=== PATIENT | male | born 1945 | race Caucasian/White ===

== ENCOUNTER 2021-06-06 16:44 | Emergency (ER) | payer MEDICARE, OTHER, SELFPAY ==
[2021-06-06 17:00] VITALS: BP 146/94; PULSE 86; RESP 16; TEMP 36.7; O2SAT 95
--- NOTE | 2021-06-06 17:22 | ED.UPPEXIN ---
HPI - Extremity Injury (Upper) General Chief Complaint: Extremity Injury, Upper Stated Complaint: Bicep Pain Time Seen by Provider: 06/06/21 17:22 Source: patient and RN notes reviewed Mode of arrival: ambulatory Limitations: no limitations History of Present Illness HPI narrative: 76-year-old male with history of hypertension presents with concern for right bicep pain. Reports today he was picking up a bag with 4 bowling balls and it when he heard and felt a snap on his right upper arm in the bicep area. Reports 0 pain with certain positions, reports extreme pain with flexing and extending. Denies any shoulder or elbow pain. Denies redness, bruising. Denies intervention. MD complaint: injury to: right and arm Related Data Home Medications Medication Instructions Recorded Confirmed atorvastatin 06/06/21 esomeprazole magnesium mg 06/06/21 lisinopril 06/06/21 tamsulosin mg PO 06/06/21 Allergies Allergy/AdvReac Type Severity Reaction Status Date / Time olive extract Allergy Unknown Swelling Verified 06/06/21 17:13 Penicillins Allergy Unknown Swelling Verified 06/06/21 17:13 Mushroom Allergy Unknown Anaphylaxis Uncoded 06/06/21 17:13 Review of Systems Review of Systems: CONSTITUTIONAL: Denies malaise, chills, sweats, or fever. SKIN: Denies redness, bruising, swelling, open skin, warmth MUSCULOSKELETAL: Reports right bicep pain NEUROLOGIC: Denies numbness, weakness All systems reviewed & are unremarkable except as noted in HPI and below PMFSH Family History Family History (Updated 03/20/19 @ 14:51 by DOCTOR UNKNOWN) Other Diabetes mellitus Family history of malignant neoplasm Social History Social History Smoking status: Former smoker Smoking end date: 08/30/87 Alcohol intake: current Comments At time of signature, agree with nursing past medical, surgical, social and family history. There is no relevant family history pertinent to the presenting complaint Exam Narrative: GENERAL: Well-appearing, well-nourished, and in no acute distress. HEAD: Normocephalic, atraumatic. EYES: PERRLA, conjunctivae clear NECK: Supple. CHEST: Speaks in full sentences. No respiratory distress. HEART: Regular rate and rhythm. Normal and equal peripheral pulses. EXTREMITIES: Right arm has normal sensation, limited range of motion. No edema or ecchymosis. Normal sensation with sensitivity to light touch and pain. Mid inner arm tenderness with mild bulge noted. No open wounds, no skin tenting, no devitalized tissue or atrophy, no trophic changes, alignment normal, nearby joints and structures intact. Distal pulses palpable and equal bilaterally, skin warm, dry, pink. Capillary refill less than 3 seconds. SKIN: Warm, dry, no rash. NEURO: Alert and oriented x3. PSYCH: Normal mood and affect Course Course Emergency Course: Patient is aware of diagnosis, understands and agrees to treatment plan. Anticipatory guidance given. Patient agrees to follow-up as directed and is aware of reasons to seek care at the emergency department. Portions of this record may have been created with voice recognition software Vital Signs Vital signs: Vital Signs Temperature 98.1 F 06/06/21 17:00 Pulse Rate 86 06/06/21 17:00 Respiratory Rate 16 06/06/21 17:00 Blood Pressure 146/94 H 06/06/21 17:00 Pulse Oximetry 95 06/06/21 17:00 Temperature 98.1 F 06/06/21 17:00 Pulse Rate 86 06/06/21 17:00 Respiratory Rate 16 06/06/21 17:00 Blood Pressure 146/94 H 06/06/21 17:00 Pulse Oximetry 95 06/06/21 17:00 Reviewed. Patient has history of hypertension MDM - Extremity Injury (Upper) MDM Narrative Medical decision making narrative: Patients injury and pain is consistent with musculoskeletal etiology. No signs of neurological or vascular compromise on exam. Compartments and tissues are soft without signs of compartment syndrome. Pain is felt appropriate for further evaluation on an outpatient basis. Crit
== END 2021-06-06 17:37 | disposition home or self-care (01) ==
PROVIDERS: Emergency Provider Nurse Practitioner
DX: S49.81XA Other specified injuries of right shoulder and upper arm, initial encounter (principal); X50.0XXA Overexertion from strenuous movement or load, initial encounter; Z87.891 Personal history of nicotine dependence
CPT/HCPCS: 99212; A4565; G0463

== ENCOUNTER 2021-09-23 10:11 | Emergency (ER) | payer MEDICARE, OTHER, SELFPAY ==
--- NOTE | ~2021-09-23 | XR_ITS ---
EXAMINATION: XR knee RT 3V EXAM DATE: 09/23/2021 10:38 INDICATION: Diffuse rt knee pain s/p twisting last night. TECHNIQUE: Three projections of the right knee. There is no prior study for comparison. FINDINGS: No evidence osteochondral defect or joint body in the right knee joint. There is mild to moderate patellofemoral, mild tibiofemoral compartment primary osteoarthritis. There are no acute fra ctures or dislocations identified. There is no subcutaneous gas. The soft tissue is unremarkable. There are no radiopaque foreign bodies. No joint effusion. IMPRESSION: Right knee osteoarthritis. Reviewed, dictated and finalized at location A. NG CAN WORKER IMPRESSION: Right knee osteoarthritis.
[2021-09-23 10:24] VITALS: BP 181/92; PULSE 90; RESP 16; TEMP 36.8; O2SAT 98
--- NOTE | 2021-09-23 10:25 | ED.LOWEXIN ---
HPI - Extremity Injury (Lower) General Chief Complaint: Extremity Injury, Lower Stated Complaint: right knee pain Time Seen by Provider: 09/23/21 10:25 Source: patient, RN notes reviewed and old records reviewed Mode of arrival: ambulatory (Using on crutches) Limitations: no limitations History of Present Illness HPI Narrative: 76-year-old male presents to the [facility] with complaints of right knee pain. Patient states he was bowling, threw the ball last night and his knee gave out. Thinks he tore his meniscus, made an appointment with his orthopedic for 30 September but wanted to get seen today. Has full range of motion. Able to straighten knee with some discomfort. Pain to the medial and lower aspect of the knee with minor swelling Related Data Home Medications Medication Instructions Recorded Confirmed atorvastatin 80 mg PO DAILY 06/06/21 09/23/21 esomeprazole magnesium 40 mg PO DAILY 06/06/21 09/23/21 lisinopril 10 mg PO DAILY 06/06/21 09/23/21 tamsulosin 0.4 mg PO DAILY 06/06/21 09/23/21 Allergies Allergy/AdvReac Type Severity Reaction Status Date / Time olive extract Allergy Unknown Swelling Verified 09/23/21 10:16 Penicillins Allergy Unknown Swelling Verified 09/23/21 10:16 Mushroom Allergy Unknown Anaphylaxis Uncoded 09/23/21 10:16 Review of Systems Review of Systems: All systems reviewed & are unremarkable except as noted in HPI and below Constitutional: Constitutional: Reports no additional constitutional complaints, Denies chills and Denies fever(s) Eyes: Eyes: Reports no additional eye complaints ENT: Reports system reviewed and no additional complaints, except as documented Cardiovascular: Cardiovascular: Reports no additional cardiovascular complaints and Denies chest pain Respiratory: Respiratory: Reports no additional respiratory complaints, Denies cough and Denies dyspnea Gastrointestinal: Gastrointestinal: Reports no additional gastrointestinal complaints, Denies abdominal pain, Denies nausea and Denies vomiting Musculoskeletal: Musculoskeletal: Reports as per HPI, Reports arthralgias (Right knee) and Reports joint swelling (Right knee lower and medial aspect) Integumentary/Breasts: Skin/Breast: Reports system reviewed and no additional complaints, except as docu Neurologic: Reports system reviewed and no additional complaints, except as documented Psychiatric: Psychiatric: Reports no additional psychiatric complaints Allergic/Immunologic: Allergic/Immunologic: Reports no additional allergic/immunologic complaints PMFSH Past Medical History Medical History (Updated 09/23/21 @ 15:19 by Lakshmi Smith) H/O gastroesophageal reflux (GERD) High cholesterol History of high blood pressure Family History Family History Other Diabetes mellitus Family history of malignant neoplasm Social History Social History Smoking status: Former smoker Smoking end date: 08/30/87 Alcohol intake: current Comments At the time of my signature, I reviewed and agree with the nursing past medical, surgical, social, and family history. There is no relevant family history pertinent to the patient complaint. Exam Const: General: healthy appearing, no acute distress and alert Nutritional Appearance: well nourished Orientation/consciousness: patient oriented x3 Limitations: no limitations HENMT: Head: normal to inspection Ears: external ears normal Eyes: Pupils: Equal, round and reactive pupils present Neck: Neck: normal visual inspection, no lymphadenopathy and no meningeal signs Chest: Chest palpation & inspection: normal inspection of the chest Resp: Effort & Inspection: normal respiratory effort Auscultation: clear to auscultation bilaterally Cardio: Rate: regular rate Rhythm: regular rhythm Back/Spine/Pelvis: Back: no CVA tenderness Skin: General skin exam: normal color Rashes: no clem
== END 2021-09-23 11:05 | disposition home or self-care (01) ==
PROVIDERS: Emergency Provider Nurse Practitioner
DX: S83.91XA Sprain of unspecified site of right knee, initial encounter (principal); X58.XXXA Exposure to other specified factors, initial encounter; Y93.54 Activity, bowling; M17.11 Unilateral primary osteoarthritis, right knee; Z87.891 Personal history of nicotine dependence; K21.9 Gastro-esophageal reflux disease without esophagitis; E78.00 Pure hypercholesterolemia, unspecified; I10 Essential (primary) hypertension
CPT/HCPCS: 73562; 99213; G0463

== ENCOUNTER 2022-01-15 13:47 | Outpatient (CLI) | payer MEDICARE, OTHER, SELFPAY ==
--- NOTE | ~2022-01-15 | MR_ITS ---
EXAMINATION: MR knee RT wo con DATE: 01/15/2022 14:34 INDICATION: Right knee pain and giving out TECHNIQUE: Magnetic resonance imaging (MRI) of the right knee was performed without intravenous contr ast. Sequences included coronal PD-weighted FSE, coronal PD-weighted FS FSE, sagittal T2-weighted FS E, sagittal PD-weighted FS FSE and axial PD weighted fat saturated FSE. COMPARISON: None. FINDINGS: Medial compartment: Medial meniscus is normal. Small partial-thickness tear at the junction of the anterior to central we ightbearing medial femoral condyle. Articular cartilage is otherwise normal. The medial compartment. Lateral compartment: Radial tear near the posterior root of the lateral meniscus. Deep chondral fissuring at the anterior weightbearing medial femoral condyle with minimal underlying cortical irregularity. Patellofemoral compartment: Deep chondral ulceration with underlying cortical irregularity along much of the lateral trochlea an d inferior aspect of the trochlear groove and medial trochlea. There is some underlying mild subartic ular edema-like signal change and numerous small subarticular cystlike changes along much of the late ral trochlea and inferior trochlear groove. Distal deep chondral ulceration with minimal underlying m arrow-like signal change at the lateral patellar facet and apical ridge. Ligaments and tendons: Anterior cruciate ligament is normal. There is thickening and mild increased signal along the posteri or cruciate ligament consistent with age-indeterminate at least mild partial tear. Mild thickening of the proximal medial collateral ligament without surrounding edema or increased signal consistent wit h mild scarring related to chronic sprain. The fibular collateral ligament is normal. The extensor me chanism is normal with some bands of magic angle artifact extending across portions of the patellar t endon. The visualized medial and lateral hamstring tendons as well as the iliotibial band are normal. Tendinopathy without discrete tear at the proximal tendon of the medial head of the gastrocnemius. Fluid: Physiologic amount of fluid in the joint space. No loose osteochondral bodies identified. Small Dunn 's cyst. Osseous/other: Normal marrow signal aside from the previous noted subarticular edema-like signal changes. No fractur e or pathologic marrow replacing process. No fracture or abnormal marrow replacing process. IMPRESSION: 1. Radial tear near the posterior root of the lateral meniscus. 2. Tricompartmental osteoarthritis, severe at the lateral aspect of the patellofemoral compartment wi th extensive high-grade chondromalacia and mild in the medial and lateral compartments with moderate grade chondromalacia along the medial femoral condyle and high-grade chondral malacia along the later al femoral condyle. 3. Mild scarring consistent with chronic sprain of the proximal medial collateral ligament and additi onal at least mild partial tear of the posterior cruciate ligament. Reviewed, dictated and finalized at location A. IMPRESSION: 1. Radial tear near the posterior root of the lateral meniscus. 2. Tricompartmental osteoarthritis, severe at the lateral aspect of the patello femoral compartment with extensive high-grade chondromalacia and mild in the me dial and lateral compartments with moderate grade chondromalacia along the medi al femoral condyle and high-grade chondral malacia along the lateral femoral co ndyle. 3. Mild scarring consistent with chronic sprain of the proximal medial collater al ligament and additional at least mild partial tear of the posterior cruciate ligament.
== END 2022-01-15 13:48 | disposition home or self-care (01) ==
LOC: ANHIMG 13:53
PROVIDERS: Visit Provider Orthopaedic Surgery
DX: M17.11 Unilateral primary osteoarthritis, right knee (principal); S83.281A Other tear of lateral meniscus, current injury, right knee, initial encounter; X58.XXXA Exposure to other specified factors, initial encounter
CPT/HCPCS: 73721

== ENCOUNTER 2022-10-10 09:27 | Emergency (ER) | payer MEDICARE, OTHER, SELFPAY ==
--- NOTE | ~2022-10-10 | XR_ITS ---
XR chest 1V portable DATE: 10/10/2022 10:06 INDICATION: Midsternal chest pain. History of hypertension. TECHNIQUE: Portable AP views on October 10, 2022 at 0956 hours COMPARISON: 02/24/2016 PA chest FINDINGS: Heart size is normal. Is aortic arch calcification. No hilar or mediastinal enlargement. No pulmonary infiltrate or consolidation, pleural effusion or pulmonary vascular congestion or pneumo thorax. Severe osteoarthritic change at the left glenohumeral joint. DEXA scoliosis and degenerative spurring of the thoracic spine. IMPRESSION: No active cardiopulmonary disease Aortic atherosclerosis Severe left glenohumeral osteoarthritis Scoliosis and degenerative spurring of the thoracic spine Reviewed, dictated and finalized at location A. OPERATOR
--- NOTE | 2022-10-10 09:31 | ECG_ITS ---
Measurements Intervals [place] Rate: 93 P: 93 SD: 155 QRS: -40 QRSD: 98 T: 56 QT: 358 QTc: 446 Interpretive Statements SINUS RHYTHM WITH FREQUENT VENTRICULAR PREMATURE COMPLEXES LEFT AXIS DEVIATION [QRS AXIS < -30] NO PREVIOUS ECG AVAILABLE FOR COMPARISON Electronically Signed On 10-10-2022 19:41:32 SHIP MATE by Nay Mejias M.D.
[2022-10-10 09:35] VITALS: BP 169/99; PULSE 97; RESP 18; TEMP 37.1; O2SAT 97
--- NOTE | 2022-10-10 09:48 | ED.CHESTPAIN ---
HPI - Chest Pain General Chief Complaint: Chest Pain Stated Complaint: Chest Pain Time Seen by Provider: 10/10/22 09:30 Source: RN notes reviewed History of Present Illness HPI narrative: Patient presents emergency department from home for chest pain. Patient states that chest pain began approximately 730 this morning. The pain was located in the midsternal chest. Pain was described as sharp and stabbing in nature and was only present with deep inspiration states the pain would last 1 to 2 seconds with deep inspiration and then resolved he states he has had no pain over the past hour he denies any radiation of the pain he denies any fevers or chills abdominal pain nausea vomiting or other symptoms denies any previous cardiac history states he does have a history of GERD Related Data Home Medications Medication Instructions Recorded Confirmed atorvastatin 80 mg tablet 80 mg PO DAILY 06/06/21 01/19/22 esomeprazole magnesium 40 mg 40 mg PO DAILY 06/06/21 01/19/22 capsule,delayed release lisinopril 10 mg tablet 10 mg PO DAILY 06/06/21 01/19/22 tamsulosin 0.4 mg capsule 0.4 mg PO DAILY 06/06/21 01/19/22 Allergies Allergy/AdvReac Type Severity Reaction Status Date / Time olive extract Allergy Unknown Swelling Verified 01/19/22 15:12 Penicillins Allergy Unknown Swelling Verified 01/19/22 15:12 Mushroom Allergy Unknown Anaphylaxis Uncoded 01/19/22 15:12 Review of Systems Review of Systems: Gen.: Denies fevers or chills ENT: Denies congestion Respiratory: Denies shortness of breath or cough CV: See HPI GI: Denies abdominal pain nausea, emesis or diarrhea Musculoskeletal: Denies back pain or muscle pain Neuro: Denies numbness, tingling, weakness or focal weakness Skin: Denies rash Except as documented, all other systems reviewed and negative [facility] Past Medical History Medical History H/O gastroesophageal reflux (GERD) High cholesterol History of high blood pressure Right knee pain Surgical History Surgical History History of appendectomy History of left knee surgery 1998 History of tonsillectomy Family History Family History Other Diabetes mellitus Family history of malignant neoplasm Social History Social History Smoking status: Former smoker Smoking end date: 08/30/87 Alcohol intake: current Substance use: never Living arrangements: with family Occupation/Education: retired Gender identity (if verbalized by the patient): Male Exam Narrative: APPEARANCE: No acute distress, nontoxic, resting in bed EYES: EOMI HEENT: Normocephalic, atraumatic, OMM RESPIRATORY: No respiratory distress Clear to auscultation bilaterally with no rhonchi wheezing or rales. CARDIOVASCULAR: Regular rate and rhythm without murmurs rubs or gallops. ABDOMINAL: Soft, nontender, nondistended, no rebound or guarding MUSCULOSKELETAl: Moves all extremities. No clubbing, cyanosis or edema. NEURO: Awake and alert. Following commands, speech normal, no focal deficits SKIN:: Warm, dry. No rashes lesions or abrasions PSYCHIATRIC: Normal affect/mood, Course Course Emergency Course: Patient's been chest pain-free throughout stay in ED Discussed with patient results of workup and diagnosis. Discussed need for follow-up with primary care, proper use of medication, and reasons to return to the emergency department. Patient understands and agrees to current treatment plan Vital Signs Vital signs: Vital Signs Temperature 98.7 F 10/10/22 09:35 Pulse Rate 97 10/10/22 09:35 Respiratory Rate 18 10/10/22 09:35 Blood Pressure 169/99 H 10/10/22 09:35 Pulse Oximetry 97 10/10/22 09:35 Oxygen Delivery Room Air 10/10/22 09:35 Temperature 98.7 F 10/10/22 09:35 Pulse Rate 97 10/10/22
[2022-10-10 10:10] LABS: Basophils Percent Auto 0.3 % (0.2-1.2); Eosinophils Absolute Auto 0.3 K/mm3 (0-0.3); Eosinophils Percent Auto 4.3 % (0-4.4); Hematocrit 41.8 % (42.0-52.0); Hemoglobin 14.3 g/dL (14.0-18.0); Immature Granulocyte Absolute 0.02 K/mm3 (0.00-0.031); Immature Granulocyte Percent A 0.3 % (0-0.5); Lymphocytes Absolute Auto 1.43 K/mm3 (0.9-3.2); Lymphocytes Percent Auto 23.8 % (18.3-44.2); Mean Corpuscular HGB Conc 34.2 g/dl (32-36); Mean Corpuscular Hemoglobin 29.7 pg (26-34); Mean Corpuscular Volume 86.7 fl (80-100); Mean Platelet Volume 10.1 fl (7.4-10.4); Monocytes Absolute Auto 0.5 K/mm3 (0.1-0.6); Monocytes Percent Auto 8.6 % (2.6-8.5); Neutrophils Absolute Auto 3.8 K/mm3 (1.3-6.7); Neutrophils Percent Auto 62.7 % (45.5-73.1); Platelet Count Result 195 k/mm3 (150-375); Red Blood Count 4.82 M/mm3 (4.6-6.20); Red Cell Distribution Width 12.4 % (11.5-14.5)
[2022-10-10 10:23] LABS: Partial Thromboplastin Time 25.8 SECONDS (22.3-36.8)
[2022-10-10 10:28] LABS: Alanine Aminotransferase 27 U/L (6-50); Albumin Level 4.2 g/dL (3.5-5.1); Alkaline Phosphatase 78 U/L (38-126); Anion Gap 8 mmol/L (8-16); Aspartate Amino Transferase 26 U/L (17-59); Bilirubin,Total 0.6 mg/dL (0.2-1.3); Blood Urea Nitrogen 12 mg/dL (9-20); Calcium 8.7 mg/dL (8.4-10.2); Carbon Dioxide 25 mmol/L (22-30); Chloride 99 mmol/L (98-107); Estimated Glomerular Filt Rate > 60; Glucose 221 mg/dL (65-110); Lipase 62 U/L (23-300); Potassium 3.9 mmol/L (3.4-5.0); Sodium 132 mmol/L (137-145)
[2022-10-10 10:39] LABS: Troponin I < 0.012 ng/mL (0.000-0.034)
[2022-10-10 13:13] LABS: Troponin I < 0.012 ng/mL (0.000-0.034)
[2022-10-10 13:27] VITALS: BP 128/80; PULSE 82; RESP 14
== END 2022-10-10 13:27 | disposition home or self-care (01) ==
PROVIDERS: Emergency Provider Emergency Medicine
DX: R07.89 Other chest pain (principal); E78.00 Pure hypercholesterolemia, unspecified; I10 Essential (primary) hypertension; K21.9 Gastro-esophageal reflux disease without esophagitis; Z87.891 Personal history of nicotine dependence; I49.3 Ventricular premature depolarization; I70.0 Atherosclerosis of aorta; M19.012 Primary osteoarthritis, left shoulder
CPT/HCPCS: 36415; 71045; 80053; 83690; 84484; 85025; 85610; 85730; 93005; 99284

== ENCOUNTER 2023-07-26 14:06 | Outpatient (CLI) | payer MEDICARE, OTHER, SELFPAY ==
--- NOTE | ~2023-07-26 | CT_ITS ---
Noncontrast CT scan of the left shoulder CLINICAL HISTORY: Preoperative planning TECHNIQUE: Axial noncontrast imaging of the left shoulder was performed. Sagittal and coronal reforma tted images were constructed. Dose reduction technique was used on this scan by utilizing automated e xposure control and iterative reconstruction technique. The dose-length product (DLP) was 505.17 mGy- cm. Findings: No fracture or dislocation seen. There is severe glenohumeral joint osteoarthritis. There i s extensive joint space narrowing with some chondral cystic change in the superior glenoid. There is prominent bony productive change/spurring at the inferior glenoid margin. There is a large inferomedi al humeral head osteophyte. There is [id number] AC joint degenerative change. Probable small brenna int effusion present. Visualized musculature grossly unremarkable. No soft tissue mass evident. No other fluid collection s een. IMPRESSION: Severe glenohumeral joint osteoarthritis, as detailed above. [id number] AC joint degenerative change. Reviewed, dictated and finalized at location . CREAM SCOOPER IMPRESSION: Severe glenohumeral joint osteoarthritis, as detailed above. [id number] AC joint degenerative change.
== END 2023-07-26 14:07 | disposition home or self-care (01) ==
LOC: ANHIMG 14:06
PROVIDERS: PCP Family Medicine; Visit Provider Orthopaedic Surgery
DX: M19.012 Primary osteoarthritis, left shoulder (principal)
CPT/HCPCS: 73200

== ENCOUNTER 2023-09-03 11:42 | Outpatient (CLI) | payer MEDICARE, OTHER, SELFPAY ==
[2023-09-03 13:27] LABS: Basophils Percent Auto 0.3 % (0.2-1.2); Eosinophils Absolute Auto 0.3 K/mm3 (0-0.3); Eosinophils Percent Auto 3.8 % (0-4.4); Hematocrit 41.7 % (42.0-52.0); Hemoglobin 13.6 g/dL (14.0-18.0); Immature Granulocyte Absolute 0.03 K/mm3 (0.00-0.031); Immature Granulocyte Percent A 0.4 % (0-0.5); Lymphocytes Absolute Auto 1.82 K/mm3 (0.9-3.2); Lymphocytes Percent Auto 26.5 % (18.3-44.2); Mean Corpuscular HGB Conc 32.6 g/dl (32-36); Mean Corpuscular Hemoglobin 29.7 pg (26-34); Monocytes Absolute Auto 0.6 K/mm3 (0.1-0.6); Neutrophils Absolute Auto 4.1 K/mm3 (1.3-6.7); Platelet Count Result 193 k/mm3 (150-375); Red Blood Count 4.58 M/mm3 (4.6-6.20); Red Cell Distribution Width 12.4 % (11.5-14.5); White Blood Count 6.9 K/mm3 (4.5-10.0)
[2023-09-03 13:37] LABS: Anion Gap 9 mmol/L (8-16); Blood Urea Nitrogen 14 mg/dL (9-20); Calcium 9.2 mg/dL (8.4-10.2); Carbon Dioxide 27 mmol/L (22-30); Chloride 101 mmol/L (98-107); Estimated Glomerular Filt Rate > 60; Glucose 208 mg/dL (65-110); Potassium 4.6 mmol/L (3.4-5.0); Sodium 137 mmol/L (137-145)
== END 2023-09-03 11:43 | disposition home or self-care (01) ==
LOC: ANHSURGERY 11:52
PROVIDERS: Anesthesiology; PCP Family Medicine; Visit Provider Orthopaedic Surgery
DX: Z01.818 Encounter for other preprocedural examination (principal); E11.9 Type 2 diabetes mellitus without complications; M12.812 Other specific arthropathies, not elsewhere classified, left shoulder
CPT/HCPCS: 36415; 80048; 85025; 87081

== ENCOUNTER 2023-09-28 01:11 | Day surgery (SDC) | payer MEDICARE, OTHER, SELFPAY ==
[2023-09-03 12:21] VITALS: BP 156/85; PULSE 81; RESP 16; TEMP 36.8; O2SAT 95; BMI 40.9
--- NOTE | 2023-09-03 12:41 | PC.NURSE ---
Report to the Outpatient Waiting Room, entrance under the green pavilion located off [facility], at time __8:30AM on date __09/28/23 . Planned Procedure Time: __10:30AM . Time changes happen often and if your time is changed the preop area will call you the afternoon before. - You and your visitor will be asked to self-screen and do not enter if you have any COVID symptoms. - A mask is optional within the hospital at this time. Patients may have clear liquids (water, carbonated beverages, clear teas, apple juice) until 3 hours prior to surgery with a maximum of 20 ounces. - No food from midnight until time of surgery. Take the following medications with a SIP of water the morning of surgery: ___NONE DO NOT STOP ANY OF YOUR OTHER PRESCRIPTION MEDICATIONS PRIOR TO SURGERY ?EXCEPT THE FOLLOWING Medications to discontinue per physician __HOLD ASPIRIN, IBUPROFEN(NSAIDS) AND ALL VITAMINS/SUPPLEMENTS 7 DAYS PRE-OP PER DR PERALTA Date to take last dose___09/20/23 Please no make-up, nail setswana, hairspray, perfume, deodorant, or body powder the day of surgery. No jewelry (including any body piercings) or valuables the day of surgery, leave them at home. Please take a shower or bath the night before, or the morning of, surgery with an antibacterial soap. Wear comfortable, loose fitting clothing. Children are encouraged to wear pajamas. - Jewelry must be removed prior to entering the operating room. Rings and piercings that are not removed may be cut off. - The hospital will not accept responsibility for valuables. - Please leave all valuables, including medications, at home the day of surgery. If you are going home after surgery, a licensed pizza driver must drive you home. - NO public transportation without another adult if you receive anesthesia. - We recommend that an adult stay with you for 24 hours following discharge. - We also recommend that you do not drive, make important decision, drink alcoholic beverages, or take any drugs that were not prescribed by your health care provider for at least 24 hours after your discharge time. Follow any additional instructions given to you from your surgeon. If you or anyone in your household have experienced Covid symptoms in the past week, please notify your surgeon or the nurse liaison at the phone number below for possible testing. Telephone instructions given to _PATIENT & WIFE___and asked if any additional questions and then verbalized understanding. Patient advised to call surgeon office or pre surgery nurse liaison [phone] if any additional questions.
--- NOTE | 2023-09-27 14:27 | WPDANESEPPF ---
Anes - Initial Pre Proc Eval Procedure: Operation Date: 09/28/23 07:30 Proposed Procedures p Left Reverse Total Shoulder Arthroplasty - Daren Becerra MD Date/Time: 09/27/23 14:27 Surgeon: Daren Becerra MD Pre Op Diagnosis: Lt Shld Rot Cuff Arthropathy Patient Data Age: 78 Gender: M Height: 1.75 m Weight: 124.9 kg Last Vital Signs Temp 98.3 F 09/03/23 12:21 Pulse 81 09/03/23 12:21 Resp 16 09/03/23 12:21 BP 156/85 H 09/03/23 12:21 Pulse Ox 95 09/03/23 12:21 O2 Del Method Room Air 09/03/23 12:21 Allergies Allergy/AdvReac Type Severity Reaction Status Date / Time olive extract Allergy Unknown Swelling Verified 09/28/23 06:15 Penicillins Allergy Unknown Swelling Verified 09/28/23 06:15 Mushroom Allergy Unknown Anaphylaxis Uncoded 09/28/23 06:15 Home Medications Medication Instructions Recorded Confirmed Type atorvastatin 80 mg tablet 80 mg PO HS 06/06/21 09/28/23 History esomeprazole magnesium 40 mg 40 mg PO HS 06/06/21 09/28/23 History capsule,delayed release lisinopril 10 mg tablet 10 mg PO HS 06/06/21 09/28/23 History tamsulosin 0.4 mg capsule 0.4 mg PO DAILY 06/06/21 09/28/23 History B-complex with vitamin C 1 cap PO DAILY 07/05/23 09/28/23 History cholecalciferol (vitamin D3) 10 10 mcg PO DAILY 07/05/23 09/28/23 History mcg (400 unit) capsule aspirin 81 mg tablet,delayed 81 mg PO DAILY 09/03/23 09/28/23 History release cyclobenzaprine 10 mg tablet 10 mg PO HS PRN Muscle Spasm 09/03/23 09/28/23 History glipizide 5 mg tablet 5 mg PO QAM 09/03/23 09/28/23 History ibuprofen 200 mg tablet 600 mg PO BID PRN Pain 09/03/23 09/28/23 History Patient hx anesthesia problems: none Family hx anesthesia problems: none Results Review: All pre-operative results and documents have been reviewed as part of the pre-operative evaluation. [facility] Past Medical History Medical History DJD of shoulder Gastrocnemius tear H/O gastroesophageal reflux (GERD) High cholesterol History of high blood pressure Lateral meniscal tear Left shoulder pain Right knee pain Surgical History Surgical History History of appendectomy History of left knee surgery 1998 History of tonsillectomy Family History Family History Other Diabetes mellitus Family history of malignant neoplasm Social History Social History Smoking packs per day: 3 Smoking cigarettes per day: 60.0 Years smoked: 6 Smoking pack-years: 18.00 Smoking status: Former smoker Tobacco type: cigarettes Smoking end date: 02/27/75 Alcohol intake: current Drinks per week: 1 Substance use: never Do You Feel Safe in your Home?: Yes Lack of Transportation: No Lack of Food: Never True Current Housing: I Have Housing Concerned About Future Housing: No Difficulty Paying Gas/Electric Bills: No Difficulty Paying for Meds: No Currently Unemployed: No Education: High School Diploma/GED Difficulty w/ Childcare or Family Care: No Living arrangements: with family Additional living arrangements comments: Occupation/Education: retired Gender identity (if verbalized by the patient): Male Spiritual care concerns: No Anes - Eval Final PreProcedure Day of Procedure 09/27/23 14:27 Patient weight: normal Heart: regular rate and rhythm Lungs: clear to auscultation Airway: Mallampati scale class III Neurological: alert and oriented Last oral intake: >/= 8 hours ASA classification: III Emergent: no Anesthetic plan: proceed Anesthesia type and monitoring: general ETT (have glidescope in the room) and standard monitoring Results Review: All pre-operative results and documents have been reviewed as part of the pre-operative evaluation. Infor
[2023-09-28] VITALS (20 sets, daily range): BP systolic 108–176; BP diastolic 47–97; PULSE 78–105; RESP 12–20; TEMP 35.9–36.7; O2SAT 92–98
--- NOTE | ~2023-09-28 | XR_ITS ---
Left Shoulder Technique: AP and scapular Y views were obtained. Clinical History: Postoperative Findings: Left shoulder reverse arthroplasty in place. No gross hardware complication seen. Alignment appears satisfactory. Soft tissues are unremarkable, aside from expected postoperative change. Impression: Status post reverse left shoulder arthroplasty. Reviewed, dictated and finalized at location . [place] [employer] Impression: Status post reverse left shoulder arthroplasty.
[2023-09-28] MEDS: ACETAMINOPHEN 500 MG TABLET 1000 MG PO ×2 (06:22→14:53)
[2023-09-28] MEDS: LACTATED RINGERS 1,000 ML 30 ML IV CONT ×2 (06:33→10:26)
[2023-09-28 06:37] LABS: Glucose Point of Care 144 mg/dl (65-105)
[2023-09-28] MEDS: TRANEXAMIC ACID 1,000MG/ISO100 1,000 MG/100 ML BAG 200 MG IVPB (07:04)
--- NOTE | 2023-09-28 07:09 | WPDHPUPDATE1 ---
History and Physical Update Update Date/Time: 09/28/23 07:09 History and Physical has been reviewed, including an updated exam of the patient. There are NO changes in the patient's condition. Risks, benefits, and alternatives have been discussed and questions answered. Patient agrees to proceed with procedure.
[2023-09-28] MEDS: ceFAZolin 3 GM/D5W 100 ML 100 ML IVPB (07:37)
[2023-09-28] MEDS: VANCOMYCIN HCL 1,000 MG VIAL 1000 MG TOPICAL (08:55)
--- NOTE | 2023-09-28 10:16 | P.OP_ITS ---
Procedure Note - Detailed Date of Procedure 09/28/23 Pre-op Diagnosis Lt Shld Rot Cuff Arthropathy Post-op Diagnosis Same Procedure Performed Reverse total shoulder arthroplasty, left shoulder Surgeon Daren Becerra MD Anesthesia General and Regional (Interscalene block.) Findings Excellent bone quality. Humerus deformed with necessity of a slight varus cut. Slight increase lateral inset of the component to compensate. Modest correction of the glenoid deformity posteriorly with a 10 degree augment at the posterosuperior position. Description of Procedure The patient was given an interscalene block in the preoperative area. Preoperative antibiotics were given. The patient was transferred to the operating room and a general anesthetic was administered. The beach chair position was used at 45 degrees. All bony prominences were padded. The head was carefully stabilized on the [facility] head of training and development. A sterile prep and drape was performed in the usual manner with ChloraPrep. A longitudinal incision was created at the anterior shoulder just lateral to the deltopectoral interval. Hydrogen peroxide was placed on the incision and then rinsed after one minute. Careful dissection was performed to expose the interval and protect the cephalic vein. The vein was retracted medially. The upper border of the pectoralis was released. Anterior circumflex vessel branches were suture ligated. The biceps was tenodesed. A subscapularis tenotomy was performed. The inferior capsule was released, exposing the humeral head. Osteophytes were removed. Care was taken to stay on bone to protect the axillary nerve. The anatomic head cut was taken with the oscillating saw. The guide pin was placed, central drilling performed, and the broach trial inserted. The neck anteversion and inclination were carefully assessed. The cut protector was placed, and attention was turned to the glenoid. Retractors were placed. Releases were carried out for exposure. The subscapularis was mobilized, the inferior capsule and long head of triceps released, and the superior and middle glenohumeral ligaments released as well. Labral tissue was resected as needed. The sizing template was used to assess the baseplate position low on the glenoid. A guide pin was placed. Minimal reaming was used to accomplish a flat surface without violating the subchondral bone. Version was corrected according to preoperative templating. The boss was drilled, and the real component was impacted into position. Supplemental locking screws were placed centrally, superiorly, and inferiorly. The glenosphere was impacted into the taper. The proximal humerus was reamed for the inset comp onent. The humeral components were trialed. The real humeral stem, tray, and insert were impacted into position. The shoulder was copiously irrigated periodically with pulsatile lavage. The shoulder was reduced and stability confirmed. 1 gram of Vancomycin powder was placed in the joint. The biceps tenodesis was incorporated with the pectoralis tendon repair. The deltopectoral space was reapproximated with number 1 Vicryl. The remaining tissue was closed with 0 Quill and 2-0 Quill running suture and steri-strips. A sterile silver occlusive dressing and shoulder immobilizer were placed. The patient was transferred to the recovery room. [employer] reverse TSA size 0 stem. +0 polyethylene insert. 10 degree baseplate. 36+6 mm glenosphere. Estimated Blood Loss 100 Drains No Pathology None sent Complications No immediate complications Condition Stable Disposition PACU [facility] Billing Surgery - Charge Forward: Surgery Billing
[2023-09-28 11:03] LABS: Glucose Point of Care 263 mg/dl (65-105)
[2023-09-28] MEDS: fentaNYL CITRATE INJ (*CRX) 100 MCG/2 ML VIAL 25 MCG IV PUSH (11:32)
--- NOTE | 2023-09-28 12:27 | SUR.PHASEI ---
1100-Dr. Mantilla aware of POC accucheck of 263-no tx at this time. 1200-Spoke w/Amrit @ Dr. Becerra's office-pt comfortabe w/level 2 after 1 Fentnayl dose however, saturations drop to upper 80s when sleeping without O2-stable w/O2 at 2l/nc. Have spoken with pt and . Amrit states will OPER admit pt. Pt meets criteria for OPER status at this time. 1201-Dr. Mantilla at [facility] and aware.
[2023-09-28 12:48] LABS: Glucose Point of Care 271 mg/dl (65-105)
[2023-09-28] MEDS: glipiZIDE 5 MG TABLET PO (13:10)
--- NOTE | 2023-09-28 13:46 | SUR.PHASEI ---
1249-Dr. Becerra at [facility] to see pt-update given.
--- NOTE | 2023-09-28 13:48 | SUR.PHASEI ---
1200-late entry-Amrit ortega/Dr. Becerra update, aware pt comfortable at level 1 after Fentanyl 25mg IVP and aware of nontreated sleep apnea and sats mid to upper 80s without O2-mid to low 90s with 2l/nc. Will admit pt as OPER status. No beds available at this time, criteria met, pt will remain in PACU as OPER status. Dr. Mantilla at [facility] and aware. 1245-Dr. Mantilla aware of POC glucose of 271-will begin home dose of Glipizide.
[2023-09-28] MEDS: ONDANSETRON INJ 4 MG/2 ML VIAL IV PUSH (14:05)
[2023-09-28] MEDS: ceFAZolin 2 GM/D5W 50 ML 2 GM/50 ML BAG IVPB ×2 (14:53→21:17)
--- NOTE | 2023-09-28 15:45 | ADMGEN ---
This patient, Jonas Mcarthur, was admitted to -. Patient/family oriented to hospital policies and general routines including ID bracelet, bed and alarms, visiting hours, pain management, procedures, bathroom and other care routines, personal items, smoking policy, room service/diet, and visiting hours. Information on how to activate the Rapid Response Team has been discussed. Patient/Family are encouraged to report perceived risks to care and to ask questions if they do not understand what they are told or what they should do.
[2023-09-28 16:16] LABS: Glucose Point of Care 257 mg/dl (65-105)
--- NOTE | 2023-09-28 16:23 | ADMGEN ---
This patient, Jonas Mcarthur, was admitted to [facility] Room [facility]-02. Patient/family oriented to hospital policies and general routines including ID bracelet, bed and alarms, visiting hours, pain management, procedures, bathroom and other care routines, personal items, smoking policy, room service/diet, and visiting hours. Information on how to activate the Rapid Response Team has been discussed. Patient/Family are encouraged to report perceived risks to care and to ask questions if they do not understand what they are told or what they should do.
[2023-09-28] MEDS: SENNA/DOCUSATE SODIUM TABLET 2 TAB PO (16:36)
[2023-09-28] MEDS: oxyCODONE HCL (*CRX) 5 MG TAB IR 10 MG PO (16:37)
[2023-09-28] MEDS: ASPIRIN 81 MG ENTERIC TABLET PO (16:38)
[2023-09-28] MEDS: CYCLOBENZAPRINE HCL 10 MG TABLET PO (16:38)
--- NOTE | 2023-09-28 17:42 | WPDCN ---
Assessment and Plan Assessment and plan (1) Degenerative joint disease of left shoulder: Code(s): M19.012 - Primary osteoarthritis, left shoulder Status: Acute Assessment and Plan: Postoperative day 0 status post reverse total shoulder arthroplasty. Wound care, pain control, and DVT prophylaxis deferred to Dr. Becerra. (2) Type 2 diabetes mellitus: Code(s): E11.9 - Type 2 diabetes mellitus without complications Status: Acute Assessment and Plan: Resume glipizide once tolerating p.o. Initiate sliding scale insulin, Accu-Cheks, and hypoglycemic protocol. (3) Hypertension: Code(s): I10 - Essential (primary) hypertension Status: Acute Assessment and Plan: Blood pressures were reviewed and they have been running a bit high postoperatively, likely due to pain. Resume lisinopril 10 mg daily and monitor blood pressures closely. (4) Hyperlipidemia: Code(s): E78.5 - Hyperlipidemia, unspecified Status: Acute Assessment and Plan: Continue atorvastatin and check LFTs in a.m. (5) Benign prostatic hyperplasia: Code(s): N40.0 - Benign prostatic hyperplasia without lower urinary tract symptoms Status: Acute Assessment and Plan: Continue tamsulosin 0.4 mg daily. Bladder scan as needed to rule out retention postoperatively. (6) Gastroesophageal reflux disease: Code(s): K21.9 - Gastro-esophageal reflux disease without esophagitis Status: Acute Assessment and Plan: No acute issues. Continue PPI. Plan Thank you for allowing us to participate in this patient's care. Please do not hesitate to contact us with any questions. HPI Data of Consult Date/Time: 09/28/23 18:45 Requesting Physician: Daren Becerra MD Consult Narrative Reason for consult: Medical management. Narrative: This is a very pleasant 78-year-old male with hypertension, hyperlipidemia, type 2 diabetes mellitus, benign prostatic hyperplasia, gastroesophageal reflux disease, and osteoarthritis whom the hospitalist service has been consulted for management of his medical conditions postoperatively. His reports longstanding pain in his left shoulder which has not been amenable to conservative outpatient therapy and he elected for replacement today. His surgery was performed under general anesthesia with regional block. There were no immediate complications were documented an estimated blood loss was 100 mL. Postoperatively his pain is pretty well controlled. He denies fever, chills, sweats, chest pain, shortness a breath, nausea, and vomiting. He hopes to be discharged tomorrow and reports that his will be helping him out at home. Regarding his chronic medical conditions, he believes they are well controlled on home medications. Review of Systems Review of Systems: Twelve systems were reviewed and are negative except for as per HPI. [facility] Past Medical History Medical History (Updated 09/28/23 @ 17:55 by Jina Mathis PA-C) Benign prostatic hyperplasia Degenerative joint disease of left shoulder Gastroesophageal reflux disease Hyperlipidemia Hypertension Kidney stone Type 2 diabetes mellitus Surgical History Surgical History (Updated 09/28/23 @ 17:55 by Jina Mathis PA-C) History of appendectomy History of arthroscopy of left knee History of cholecystectomy History of skin graft History of tonsillectomy Family History Family History Other Diabetes mellitus Family history of malignant neoplasm Social History Social History (Updated 09/28/23 @ 22:45 by Jina Mathis PA-C) Social History: Surrogate medical decision maker: Patricia Blue, spouse. Code status: Full code. Smoking packs per day: 3 Smoking cigarettes per day: 60.0 Years smoked: 18 Smoking pack-years: 54.00 Smoking status: Former smoker Tobacco type: cigare
[2023-09-28] MEDS: traMADol HCL (*CRX) 50 MG TABLET PO (18:57)
[2023-09-28] MEDS: ATORVASTATIN 40 MG TABLET 80 MG PO (21:15)
[2023-09-28] MEDS: FAMOTIDINE 20 MG TABLET PO (21:15)
[2023-09-28] MEDS: PANTOPRAZOLE 40 MG TABLET PO (21:15)
[2023-09-28] MEDS: lisinopriL 10 MG TABLET PO (21:16)
[2023-09-28 21:42] LABS: Glucose Point of Care 220 mg/dl (65-105)
[2023-09-29 00:30] VITALS: BP 164/94; PULSE 98; RESP 20; TEMP 37.3; O2SAT 97
[2023-09-29 04:58] VITALS: BP 131/84; PULSE 99; RESP 18; TEMP 36.8; O2SAT 98
[2023-09-29] MEDS: ACETAMINOPHEN 500 MG TABLET 1000 MG PO ×2 (05:07→10:14)
[2023-09-29] MEDS: ceFAZolin 2 GM/D5W 50 ML 2 GM/50 ML BAG IVPB (05:07)
[2023-09-29 06:40] LABS: Basophils Percent Auto 0.3 % (0.2-1.2); Eosinophils Percent Auto 0.3 % (0-4.4); Hemoglobin 13.3 g/dL (14.0-18.0); Immature Granulocyte Absolute 0.07 K/mm3 (0.00-0.031); Immature Granulocyte Percent A 0.6 % (0-0.5); Lymphocytes Absolute Auto 1.17 K/mm3 (0.9-3.2); Lymphocytes Percent Auto 9.7 % (18.3-44.2); Mean Corpuscular HGB Conc 33.3 g/dl (32-36); Mean Corpuscular Hemoglobin 30.2 pg (26-34); Mean Corpuscular Volume 90.9 fl (80-100); Mean Platelet Volume 10.4 fl (7.4-10.4); Monocytes Absolute Auto 1.2 K/mm3 (0.1-0.6); Monocytes Percent Auto 9.5 % (2.6-8.5); Neutrophils Absolute Auto 9.6 K/mm3 (1.3-6.7); Neutrophils Percent Auto 79.6 % (45.5-73.1); Platelet Count Result 185 k/mm3 (150-375); Red Cell Distribution Width 12.3 % (11.5-14.5); White Blood Count 12.1 K/mm3 (4.5-10.0)
[2023-09-29 07:18] LABS: Alanine Aminotransferase 33 U/L (6-50); Albumin Level 3.8 g/dL (3.5-5.1); Alkaline Phosphatase 78 U/L (38-126); Anion Gap 8 mmol/L (8-16); Aspartate Amino Transferase 32 U/L (17-59); Bilirubin,Total 0.7 mg/dL (0.2-1.3); Blood Urea Nitrogen 16 mg/dL (9-20); Calcium 9.1 mg/dL (8.4-10.2); Carbon Dioxide 25 mmol/L (22-30); Chloride 103 mmol/L (98-107); Estimated CRCL calculation 101 ml/min; Estimated Glomerular Filt Rate > 60; Glucose 156 mg/dL (65-110); Magnesium 1.5 mg/dL (1.6-2.3); Potassium 3.9 mmol/L (3.4-5.0); Sodium 136 mmol/L (137-145)
[2023-09-29 07:41] LABS: Glucose Point of Care 161 mg/dl (65-105)
--- NOTE | 2023-09-29 08:10 | PM.DS ---
DS: Admitting Diagnosis Discharge Date 09/29/23 Admitting Diagnosis Left glenohumeral joint arthritis. DS: Discharge Diagnosis Discharge Diagnosis (1) Status post reverse total arthroplasty of left shoulder: Code(s): Z96.612 - Presence of left artificial shoulder joint Status: Acute Assessment and Plan: Postop day 1: Left reverse total shoulder arthroplasty. Patient tolerated procedure well. No complications. Pain manageable with pain medication. No numbness or tingling. Patient does have a history of sleep apnea. He does not wear a cpap. He was on oxygen overnight. He has been weaned from oxygen this morning. We had a lengthy discussion regarding postoperative wound care, limitations, expectations, and exercises. Patient shows good understanding. He has had initial physical therapy and is tolerating it well. DVT prophylaxis: 81 mg baby aspirin b.i.d. for 14 days. Pain medication: Percocet. Patient has followup appointment with Dr. Becerra in 3 weeks. DS: Summary Hospital Course Hospital Course: He has had initial PT /OT and tolerating it well. Pain controlled. He has sleep apnea and does not use a CPAP. He was on O2 overnight. Weaned this morning. Status at Discharge Functional status at discharge: independent ambulation Overall status at discharge: patient is progressing back to baseline Time Spent with Patient Time attestation: Total time spent providing and/or coordinating discharge services: Exam Narrative: Obese 78 y/o male. Resting comfortably in chair. Wearing sling. Dressing dry and intact with no drainage. Moderate swelling. Mild ecchymosis. No erythema. No hematoma. Range of motion limited due to pain. Calf nontender. Neurologic status intact. No varicosities. Distal pulses palpable. Deltoid fires. DS: Data Data Completed and Pending Labs on day of discharge: Labs from last 24 hours 09/29/23 09/29/23 09/28/23 07:34 06:24 20:50 WBC 12.1 H RBC 4.40 L Hgb 13.3 L Hct 40.0 L MCV 90.9 MCH 30.2 MCHC 33.3 RDW 12.3 Plt Count 185 MPV 10.4 Immature Gran % (Auto) 0.6 H Neut % (Auto) 79.6 H Lymph % (Auto) 9.7 L [place] % (Auto) 9.5 H Eos % (Auto) 0.3 Baso % (Auto) 0.3 Lymph # (Auto) 1.17 [place] # (Auto) 1.2 H Eos # (Auto) 0.0 Baso # (Auto) 0.0 Abs Immat Gran (auto) 0.07 H Absolute Neuts (auto) 9.6 H Absolute Nucleated RBC 0.0 Nucleated RBC % 0.0 Sodium 136 L Potassium 3.9 Chloride 103 Carbon Dioxide 25 Anion Gap 8 BUN 16 Creatinine 0.70 Estim Creat Clear Calc 101 Estimated GFR > 60 Glucose 156 H POC Capillary Glucose 161 H 220 H Calcium 9.1 Magnesium 1.5 L Total Bilirubin 0.7 Direct Bilirubin 0.0 AST 32 ALT 33 Alkaline Phosphatase 78 Total Protein 7.0 Albumin 3.8 09/28/23 09/28/23 09/28/23 16:09 12:45 10:58 WBC RBC Hgb Hct MCV MCH MCHC RDW Plt Count MPV Immature Gran % (Auto) Neut % (Auto) Lymph % (Auto) [place] % (Auto) Eos % (Auto) Baso % (Auto) Lymph # (Auto) [place] # (Auto) Eos # (Auto) Baso # (Auto) Abs Immat Gran (auto) Absolute Neuts (auto) Absolute Nucleated RBC Nucleated RBC % Sodium Potassium Chloride Carbon Dioxide Anion Gap BUN Creatinine Estim Creat Clear Calc Estimated GFR Glucose POC Capillary Glucose 257 H 271 H 263 H Calcium Magnesium Total Bilirubin Direct Bilirubin AST ALT Alkaline Phosphatase Total Protein Albumin Discharge Plan Discharge Patient Disposition: Home, Self-Care Discharge Instructions: See green instruction sheets Stand Alone Forms: General Discharge Instructions Follow-up/Referrals: Marychuy Lacy PA [Physician [employer]] - Discharge Medications: New aspirin 81 mg tablet,delayed release (/E
[2023-09-29] MEDS: polyethylene glycoL 3350 17 GM POWD.PACK PO (08:53)
[2023-09-29] MEDS: FAMOTIDINE 20 MG TABLET PO (08:54)
[2023-09-29] MEDS: TAMSULOSIN HCL 0.4 MG CAPSULE PO (08:54)
[2023-09-29] MEDS: glipiZIDE 5 MG TABLET PO (08:54)
[2023-09-29] MEDS: SENNA/DOCUSATE SODIUM TABLET 2 TAB PO (08:54)
[2023-09-29] MEDS: ASPIRIN 81 MG ENTERIC TABLET PO (08:54)
[2023-09-29] MEDS: oxyCODONE HCL (*CRX) 5 MG TAB IR PO (10:15)
--- NOTE | 2023-09-29 11:51 | PM.IMPN ---
Subjective Date/time seen: 09/29/23 11:51 Interval history: Pt was discharged before being seen by me. Objective Data Vital Signs Vital Signs: Vital Signs - 24 hr 09/28/23 11:55 09/28/23 12:05 09/28/23 12:35 Temperature Pulse Rate 97 96 94 Respiratory Rate 12 12 12 Blood Pressure 156/70 H 158/78 H 146/70 H Pulse Oximetry 94 94 94 Oxygen Delivery Nasal Cannula Nasal Cannula Nasal Cannula Oxygen Flow Rate 2 2 2 09/28/23 13:05 09/28/23 13:35 09/28/23 14:05 Temperature Pulse Rate 103 H 99 100 Respiratory Rate 19 16 14 Blood Pressure 145/86 H 162/66 H 158/75 H Pulse Oximetry 93 92 92 Oxygen Delivery Nasal Cannula Nasal Cannula Nasal Cannula Oxygen Flow Rate 2 2 2 09/28/23 14:35 09/28/23 15:45 09/28/23 16:00 Temperature 98.0 F 97.0 F L Pulse Rate 99 96 100 Respiratory Rate 12 18 18 Blood Pressure 152/75 H 149/79 H 142/70 H Pulse Oximetry 95 97 97 Oxygen Delivery Nasal Cannula Oxygen Flow Rate 2 09/28/23 16:30 09/28/23 15:45 09/28/23 17:14 Temperature 96.7 F L 96.7 F L Pulse Rate 95 93 Respiratory Rate 18 18 Blood Pressure 147/69 H 144/93 H Pulse Oximetry 98 97 97 Oxygen Delivery Nasal Cannula Oxygen Flow Rate 2 09/28/23 20:45 09/28/23 20:00 09/29/23 00:30 Temperature 97.2 F L 99.2 F Pulse Rate 105 H 98 Respiratory Rate 18 20 Blood Pressure 176/85 H 164/94 H Pulse Oximetry 96 96 97 Oxygen Delivery Nasal Cannula Oxygen Flow Rate 2 09/29/23 04:58 09/29/23 07:59 09/29/23 08:00 Temperature 98.3 F Pulse Rate 99 Respiratory Rate 18 Blood Pressure 131/84 Pulse Oximetry 98 Oxygen Delivery Room Air Room Air Oxygen Flow Rate 09/29/23 09:36 Temperature Pulse Rate Respiratory Rate Blood Pressure Pulse Oximetry Oxygen Delivery Room Air Oxygen Flow Rate Intake/Output Intake/Output: Intake & Output 09/26/23 09/27/23 09/28/23 09/29/23 23:59 23:59 23:59 23:59 Intake Total 440 505 Output Total 575 Balance 440 -70 Meds/Results Radiology Results: ITS Impressions Shoulder X-Ray 09/28/23 10:59 Impression: Status post reverse left shoulder arthroplasty. Labs Labs: Laboratory Results - last 24 hr 09/28/23 09/28/23 09/28/23 12:45 16:09 20:50 WBC RBC Hgb Hct MCV MCH MCHC RDW Plt Count MPV Immature Gran % (Auto) Neut % (Auto) Lymph % (Auto) [place] % (Auto) Eos % (Auto) Baso % (Auto) Lymph # (Auto) [place] # (Auto) Eos # (Auto) Baso # (Auto) Abs Immat Gran (auto) Absolute Neuts (auto) Absolute Nucleated RBC Nucleated RBC % Sodium Potassium Chloride Carbon Dioxide Anion Gap BUN Creatinine Estim Creat Clear Calc Estimated GFR Glucose POC Capillary Glucose 271 H 257 H 220 H Calcium Magnesium Total Bilirubin Direct Bilirubin AST ALT Alkaline Phosphatase Total Protein Albumin 09/29/23 09/29/23 06:24 07:34 WBC 12.1 H RBC 4.40 L Hgb 13.3 L Hct 40.0 L MCV 90.9 MCH 30.2 MCHC 33.3 RDW 12.3 Plt Count 185 MPV 10.4 Immature Gran % (Auto) 0.6 H Neut % (Auto) 79.6 H Lymph % (Auto) 9.7 L [place] % (Auto) 9.5 H Eos % (Auto) 0.3 Baso % (Auto) 0.3 Lymph # (Auto) 1.17 [place] # (Auto) 1.2 H Eos # (Auto) 0.0 Baso # (Auto) 0.0 Abs Immat Gran (auto) 0.07 H Absolute Neuts (auto) 9.6 H Absolute Nucleated RBC 0.0 Nucleated RBC % 0.0 Sodium 136 L Potassium 3.9 Chloride 103 Carbon Dioxide 25 Anion Gap 8 BUN 16 Creatinine 0.70 Estim Creat Clear Calc 101 Estimated GFR > 60 Glucose 156 H POC Capillary Glucose 161 H Calcium 9.1 Magnesium 1.5 L Total Bilirubin 0.7 Direct Bilirubin 0.0 AST 32 ALT 33 Alkaline Phosphatase 78 Total Protein 7.0 Albumin 3.8
== END 2023-09-29 10:17 | disposition home or self-care (01) ==
LOC: ANHSURGERY 07:46 → ANH3MEDSUR 16:09
PROVIDERS: Physician Assistant; Physician Assistant Surgical; PCP Family Medicine; Visit Provider Orthopaedic Surgery
PROC: (CPT 23472; principal; 2023-09-28 07:30)
DX: M19.012 Primary osteoarthritis, left shoulder (principal); E11.9 Type 2 diabetes mellitus without complications; E78.00 Pure hypercholesterolemia, unspecified; I10 Essential (primary) hypertension; N40.0 Benign prostatic hyperplasia without lower urinary tract symptoms; K21.9 Gastro-esophageal reflux disease without esophagitis; Z87.891 Personal history of nicotine dependence; Z79.82 Long term (current) use of aspirin; Z79.84 Long term (current) use of oral hypoglycemic drugs
CPT/HCPCS: 23472; 36415; 73030; 80048; 80076; 82948; 83735; 85025; 86850; 86900; 86901; 87081; 97110; 97161; 97165; A4565; A9270; C1776; J0171; J0690; J1100; J1170; J1596; J1885; J2250; J2270; J2405; J2704; J2710; J2795; J3010; J3370; J7120

== ENCOUNTER 2023-11-16 11:53 | Outpatient (CLI) | payer MEDICARE, OTHER, SELFPAY ==
--- NOTE | ~2023-11-16 | XR_ITS ---
Left Shoulder Technique: AP and scapular Y views were obtained. Clinical History: Orthopedic follow-up COMPARISON: 10/20/2023 Findings: No fracture or dislocation is seen. Stable left shoulder arthroplasty. Soft tissues are unr emarkable. Impression: No acute abnormality. Stable left shoulder arthroplasty. Reviewed, dictated and finalized at [facility]. Impression: No acute abnormality. Stable left shoulder arthroplasty.
== END 2023-11-16 11:54 | disposition home or self-care (01) ==
LOC: ANHIMG 12:00
PROVIDERS: PCP Family Medicine; Visit Provider Orthopaedic Surgery
DX: Z47.89 Encounter for other orthopedic aftercare (principal)
CPT/HCPCS: 73030

== ENCOUNTER 2023-11-18 00:10 | Observation (INO) | payer MEDICARE, OTHER, SELFPAY ==
[2023-11-18] VITALS (16 sets, daily range): BP systolic 118–147; BP diastolic 51–80; PULSE 98–132; RESP 13–30; TEMP 36.4–37.9; O2SAT 92–97; BMI 41.0
--- NOTE | ~2023-11-18 | CT_ITS ---
EXAMINATION: CTA chest PE protocol DATE: 11/18/2023 10:31 INDICATION: Tachycardia. Prior surgery. Concern for pulmonary embolism. TECHNIQUE: Computed tomography angiography (CTA) of the chest was performed with 100 mL Omnipaque-350 intravenous contrast timed to evaluate the pulmonary arteries. Coronal maximum intensity projection 3D-reconstructions were created by the technologist. Automated exposure control and iterative reconst ruction technique were employed. Exam dose: 995.00 mGy-cm total exam DLP. COMPARISON: October 10, 2022 portable AP chest FINDINGS: There is moderate contrast opacification of the pulmonary arteries and no evidence of pulmo nary embolism. No thoracic aortic aneurysm or dissection. Coronary artery calcifications. Normal heart size. No pericardial or pleural effusion. No hilar or mediastinal mass lesion or lymphadenopathy. There is mild infiltrate or atelectasis in the dependent lower lobes, left greater than right. Numerous calcified granulomas of the liver and spleen consistent with old granulomatous disease. Status post cholecystectomy. Normal morphology of the adrenal glands. Left reverse glenohumeral arthroplasty. Prominent degenerative disc disease at C5-6 and C6-7. Diffuse idiopathic skeletal hyperostosis of the thoracic spine. No suspicious osteolytic or osteoblastic lesions are noted. IMPRESSION: Mild bilateral lower lobe infiltrate and/or atelectasis No evidence of pulmonary embolism Reviewed, dictated and finalized at [facility]. Reviewed, dictated and finalized at [facility].
--- NOTE | 2023-11-18 00:53 | ECG_ITS ---
Measurements Intervals [place] Rate: 123 P: 57 AL: 155 QRS: -57 QRSD: 97 T: 60 QT: 323 QTc: 464 Interpretive Statements SINUS TACHYCARDIA ATRIAL PREMATURE COMPLEXES INCOMPLETE RIGHT BUNDLE BRANCH BLOCK LEFT ANTERIOR FASCICULAR BLOCK NONSPECIFIC ST & T-WAVE ABNORMALITY- HIGH LATERAL LEADS BASELINE ARTIFACT- I, III, AVR, AVL ABNORMAL ECG COMPARED TO ECG 10/10/2022 09:48:29 SINUS TACHYCARDIA NOW PRESENT INCOMPLETE RIGHT BUNDLE-BRANCH BLOCK NOW PRESENT LEFT ANTERIOR FASCICULAR BLOCK NOW PRESENT Electronically Signed On 11-18-2023 6:33:00 CDT by Antoine Flores D.O.
--- NOTE | 2023-11-18 00:53 | ED.NAVMDI ---
HPI - Nausea/Vomiting/Diarrhea General Chief complaint: Nausea/Vomiting/Diarrhea Stated complaint: N/V/D, CHILLS, WEAKNESS, POSSIBLE FOOD POISONING Time Seen by Provider: 11/18/23 00:15 History of Present Illness HPI Narrative: 78-year-old male with history of hypertension, hyperlipidemia, type 2 diabetes presents to the emergency department for nausea vomiting and diarrhea that started this evening. Patient states he went to [facility] for dinner, then came home and felt fine and had some ice cream. States later he began having generalized weakness. States he was having difficulty getting out of bed. He went to the bathroom and had a small amount of diarrhea. States he vomited 3 times and had associated chills. He called 911 was called and the patient was transported to the emergency department. States feels much better after vomiting is currently not having any symptoms. He denies abdominal pain, nausea, fever, dysuria or hematuria, chest pain or shortness of breath. Prior abdominal surgeries consisted of cholecystectomy and appendectomy. Related Data Home Medications Medication Instructions Recorded Confirmed atorvastatin 80 mg tablet 80 mg PO HS 06/06/21 11/17/23 esomeprazole magnesium 40 mg 40 mg PO HS 06/06/21 11/17/23 capsule,delayed release lisinopril 10 mg tablet 10 mg PO HS 06/06/21 11/17/23 tamsulosin 0.4 mg capsule 0.4 mg PO DAILY 06/06/21 11/17/23 B-complex with vitamin C 1 cap PO DAILY 07/05/23 11/17/23 cholecalciferol (vitamin D3) 10 10 mcg PO DAILY 07/05/23 11/17/23 mcg (400 unit) capsule aspirin 81 mg tablet,delayed 81 mg PO DAILY 09/03/23 11/17/23 release cyclobenzaprine 10 mg tablet 10 mg PO HS PRN Muscle Spasm 09/03/23 11/17/23 glipizide 5 mg tablet 5 mg PO QAM 09/03/23 11/17/23 ibuprofen 200 mg tablet 600 mg PO BID PRN Pain 09/03/23 11/17/23 Allergies Allergy/AdvReac Type Severity Reaction Status Date / Time olive extract Allergy Unknown Swelling Verified 11/17/23 09:29 Penicillins Allergy Unknown Swelling Verified 11/17/23 09:29 Mushroom Allergy Unknown Anaphylaxis Uncoded 11/17/23 09:29 Review of Systems Review of Systems: CONSTITUTIONAL: Denies fever, chills, or sweats. EYES: Denies visual changes, redness, or discharge. ENT: Denies rhinorrhea, congestion, sore throat, or otalgia. CARDIOVASCULAR: Denies chest pain, palpitations, or edema. RESPIRATORY: Denies cough or dyspnea. GASTROINTESTINAL: See HPI GENITOURINARY: Denies dysuria or hematuria. SKIN: Denies rash or itching. MUSCULOSKELETAL: Denies back pain, joint pain, or myalgia. NEUROLOGIC: Denies headache, numbness, or weakness. PSYCHIATRIC: Denies anxiety or depression. 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 Code status: Full code. Smoking packs per day: 3 Smoking cigarettes per day: 60.0 Years smoked: 18 Smoking pack-years: 54.00 Smoking status: Former smoker Tobacco type: cigarettes Smoking end date: 02/27/75 Alcohol intake: current Drinks per week: 1 Substance use: never Substance use type: does not use Do You Feel Safe in your Home?: Yes Lack of Transpo
[2023-11-18] MEDS: SODIUM CHLORIDE 0.9% IV 1,000 ML 999 ML IV CONT ×3 (01:10→01:47)
--- NOTE | 2023-11-18 01:13 | PC.NURSE ---
Pt tells this RN that he no longer feels nauseous and does not need medication for nausea. Ondansetron held at this time.
[2023-11-18 01:29] LABS: Basophils Percent Auto 0.2 % (0.2-1.2); Eosinophils Absolute Auto 0.1 K/mm3 (0-0.3); Eosinophils Percent Auto 0.6 % (0-4.4); Hematocrit 40.6 % (42.0-52.0); Hemoglobin 13.8 g/dL (14.0-18.0); Immature Granulocyte Absolute 0.08 K/mm3 (0.00-0.031); Immature Granulocyte Percent A 0.6 % (0-0.5); Lymphocytes Absolute Auto 0.56 K/mm3 (0.9-3.2); Lymphocytes Percent Auto 4.1 % (18.3-44.2); Mean Corpuscular Hemoglobin 30.1 pg (26-34); Mean Corpuscular Volume 88.5 fl (80-100); Mean Platelet Volume 10.1 fl (7.4-10.4); Monocytes Absolute Auto 0.9 K/mm3 (0.1-0.6); Monocytes Percent Auto 6.8 % (2.6-8.5); Neutrophils Percent Auto 87.7 % (45.5-73.1); Platelet Count Result 186 k/mm3 (150-375); Red Blood Count 4.59 M/mm3 (4.6-6.20); Red Cell Distribution Width 12.3 % (11.5-14.5); White Blood Count 13.6 K/mm3 (4.5-10.0)
[2023-11-18 01:35] LABS: Alanine Aminotransferase 30 U/L (6-50); Albumin Level 3.9 g/dL (3.5-5.1); Alkaline Phosphatase 90 U/L (38-126); Anion Gap 4 mmol/L (8-16); Aspartate Amino Transferase 29 U/L (17-59); Bilirubin,Total 0.7 mg/dL (0.2-1.3); Blood Urea Nitrogen 15 mg/dL (9-20); Calcium 9.3 mg/dL (8.4-10.2); Carbon Dioxide 23 mmol/L (22-30); Chloride 105 mmol/L (98-107); Estimated CRCL calculation 101 ml/min; Estimated Glomerular Filt Rate > 60; Glucose 224 mg/dL (65-110); Lipase 138 U/L (23-300); Potassium 3.5 mmol/L (3.4-5.0); Sodium 132 mmol/L (137-145)
[2023-11-18 01:48] LABS: Influenza A QL RT-PCR Negative (Negative); Influenza B QL RT-PCR Negative (Negative); RSV RNA, RT-PCR Negative (Negative); SARS-CoV-2 RNA PCR Negative (Negative)
[2023-11-18 01:53] LABS: Appearance Urine Cloudy (Clear); Bilirubin Urine Negative (Negative); Blood Urine 1+ (Negative); Color Urine Dark Yellow (Yellow); Glucose Urine UA Trace mg/dL (Negative); Ketones Urine Trace mg/dL (Negative); Leukocyte Esterase Ur 2+ LEU/UL (Negative); Nitrate Urine Negative (Negative); Protein Urine 2+ mg/dL (Negative); Specific Grav Ur 1.021 (1.001-1.035); Squamous Epithelial Cell Urine None Seen /hpf (Few); Urobilinogen Urine 0.2 mg/dL (<2.0); WBC Urine >100 /hpf (0-3)
[2023-11-18 01:57] LABS: Bacteria Urine 1+ /hpf
[2023-11-18 02:01] LABS: Add Urine Microscopic? YES
[2023-11-18] MEDS: ACETAMINOPHEN 500 MG TABLET 1000 MG PO (02:41)
--- NOTE | 2023-11-18 03:37 | ADMGEN ---
This patient, Jonas Mcarthur, was admitted to Medical Room 340-01. Patient/family oriented to hospital policies and general routines including ID bracelet, bed and alarms, visiting hours, pain management, procedures, bathroom and other care routines, personal items, smoking policy, room service/diet, and visiting hours. Information on how to activate the Rapid Response Team has been discussed. Patient/Family are encouraged to report perceived risks to care and to ask questions if they do not understand what they are told or what they should do.
[2023-11-18 04:10] LABS: Reflex Lactic Acid Yes or No Add Lactic
[2023-11-18 05:43] LABS: Lactic Acid 2.4 mmol/L (0.7-2.0)
[2023-11-18] MEDS: TAMSULOSIN HCL 0.4 MG CAPSULE PO (08:57)
[2023-11-18] MEDS: ASPIRIN 81 MG ENTERIC TABLET 162 MG PO (08:57)
[2023-11-18] MEDS: lisinopriL 10 MG TABLET PO (08:57)
[2023-11-18] MEDS: ENOXAPARIN 40 MG/0.4 ML SYRINGE SUB-Q (08:58)
[2023-11-18] MEDS: SODIUM CHLORIDE 0.9% IV 1,000 ML 100 ML IV CONT ×2 (08:58→20:17)
[2023-11-18 09:15] LABS: D Dimer 1.17 ug/mL (<0.48)
--- NOTE | 2023-11-18 09:24 | PM.IMHP ---
H&P: HPI History of Present Illness Date/Time: 11/18/23 09:24 Chief Complaint: Nausea/Vomiting/Diarrhea Narrative: 78-year-old male with history of hypertension, hyperlipidemia, type 2 diabetes, benign prostatic hyperplasia, and GERD presents to the hospital for nausea vomiting and diarrhea. According to the patient he was at [facility] for dinner and felt fine. He returned home and went to bed. He then tried to get out of bed to use the restroom and became extremely weak causing him to fall out of bed onto the floor. He denies hitting his head and loss of consciousness. His then helped him to the restroom where he had a large episode of diarrhea. He denies hematochezia. EMS was called and patient had 3 episodes of emesis. He denies hematemesis. He was found to have a UTI while in the ED and was started on rocephin. He denies burning sensation, increased frequency, pain with urination, and hematuria. Today he denies nausea and vomiting but continues to have diarrhea. He states he no longer feels weak and is able to walk throughout his room with ease. He continues to be tachycardic into the 110s. A d dimer was elevated and a CTA chest was negative for PE. Patient remains on maintenance fluids for dehydration likely causing the tachycardia. ED workup: CBC with leukocytosis without bandemia. Chemistry with hyperglycemia. Lactic acid elevated at 3. Urinalysis cloudy in appearance with 2+ protein, trace glucose and ketones, 1+ blood, 2+ leukocytes, 3-5 RBC and > 100 WBC. Rocephin started for UTI. Flu/RSV/COVID panel was negative. Lipase WNL. EKG with sinus tachycardia [address] elevation. Fluids started with improvement of HR to 113. Review of Systems Review of Systems: All systems reviewed & are unremarkable except as noted in HPI and below PMFSH Past Medical History Medical History (Updated 11/18/23 @ 15:45 by Yessenia Gaona PA-C) Benign prostatic hyperplasia Degenerative joint disease of left shoulder Gastroesophageal reflux disease Hyperlipidemia Hypertension Kidney stone Type 2 diabetes mellitus Surgical History Surgical History History of appendectomy History of arthroscopy of left knee History of cholecystectomy History of reverse total replacement of left shoulder joint (~09/28/23) History of skin graft History of tonsillectomy Family History Family History (Updated 11/18/23 @ 03:40 by Cherelle Croft RN) Sibling Diabetes mellitus Family history of malignant neoplasm Mother Family history of malignant neoplasm Social History Social History Social History: Surrogate medical decision maker: Patricia Mcarthur, spouse. Code status: Full code. Smoking packs per day: 3 Smoking cigarettes per day: 60.0 Years smoked: 18 Smoking pack-years: 54.00 Smoking status: Former smoker Tobacco type: cigarettes Smoking end date: 02/27/75 Alcohol intake: current Drinks per week: 1 Substance use: never Substance use type: does not use Do You Feel Safe in your Home?: Yes Lack of Transportation: No Lack of Food: Never True Current Housing: I Have Housing Concerned About Future Housing: No Difficulty Paying Gas/Electric Bills: No Difficulty Paying for Meds: No Currently Unemployed: No Education: Associate Degree Difficulty w/ Childcare or Family Care: No Living arrangements: with family Additional living arrangements comments: Lives with spouse in [place]. 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 Spiritual care concerns: No Meds Home Medications and Allergies Home Medications Medication Instructions Recorded Confirmed Type atorvastatin 80 mg tablet 80 mg PO HS 06/06/21 11/18/23 History esomeprazole mag
[2023-11-18] MEDS: PANTOPRAZOLE 40 MG TABLET PO (20:17)
[2023-11-18] MEDS: ATORVASTATIN 40 MG TABLET 80 MG PO (20:17)
[2023-11-18] MEDS: ACETAMINOPHEN 325 MG TABLET 650 MG PO (20:22)
[2023-11-19] VITALS (9 sets, daily range): BP systolic 123–145; BP diastolic 55–69; PULSE 91–113; RESP 16–18; TEMP 36.8–36.9; O2SAT 95–97
[2023-11-19 05:53] LABS: Hematocrit 35.8 % (42.0-52.0); Hemoglobin 11.6 g/dL (14.0-18.0); Mean Corpuscular HGB Conc 32.4 g/dl (32-36); Mean Corpuscular Hemoglobin 29.9 pg (26-34); Mean Corpuscular Volume 92.3 fl (80-100); Mean Platelet Volume 10.4 fl (7.4-10.4); Platelet Count Result 166 k/mm3 (150-375); Red Blood Count 3.88 M/mm3 (4.6-6.20); Red Cell Distribution Width 12.6 % (11.5-14.5); White Blood Count 13.3 K/mm3 (4.5-10.0)
[2023-11-19 06:06] LABS: Anion Gap -2 mmol/L (8-16); Blood Urea Nitrogen 10 mg/dL (9-20); Calcium 8.7 mg/dL (8.4-10.2); Carbon Dioxide 29 mmol/L (22-30); Chloride 104 mmol/L (98-107); Estimated CRCL calculation 103 ml/min; Estimated Glomerular Filt Rate > 60; Glucose 174 mg/dL (65-110); Potassium 3.6 mmol/L (3.4-5.0); Sodium 131 mmol/L (137-145)
[2023-11-19] MEDS: lisinopriL 10 MG TABLET PO (08:17)
[2023-11-19] MEDS: glipiZIDE 5 MG TABLET PO (08:17)
[2023-11-19] MEDS: TAMSULOSIN HCL 0.4 MG CAPSULE PO (08:17)
[2023-11-19] MEDS: ASPIRIN 81 MG ENTERIC TABLET 162 MG PO (08:17)
[2023-11-19] MEDS: SODIUM CHLORIDE 0.9% IV 1,000 ML 100 ML IV CONT (08:18)
[2023-11-19] MEDS: ENOXAPARIN 40 MG/0.4 ML SYRINGE SUB-Q (08:18)
[2023-11-19] MEDS: METOPROLOL SUCCINATE EXT REL 12.5 MG TABCR PO (10:04)
[2023-11-19 10:57] LABS: Hemoglobin A1C 8.5 % (<5.7)
[2023-11-19 13:10] LABS: Magnesium 1.5 mg/dL (1.6-2.3)
--- NOTE | 2023-11-19 14:41 | PM.DS ---
DS: Admitting Diagnosis Discharge Date 11/19/2023 Admitting Diagnosis Acute UTI Dehydration Tachycardia Premature atrial contractions Benign prostatic hyperplasia DS: Discharge Diagnosis Discharge Diagnosis (1) Acute UTI: Code(s): N39.0 - Urinary tract infection, site not specified Status: Acute (2) Dehydration: Code(s): E86.0 - Dehydration Status: Acute (3) Premature atrial contractions: Code(s): I49.1 - Atrial premature depolarization Status: Acute (4) Tachycardia: Code(s): R00.0 - Tachycardia, unspecified Status: Acute (5) Type 2 diabetes mellitus: Code(s): E11.9 - Type 2 diabetes mellitus without complications Status: Acute (6) Hypertension: Code(s): I10 - Essential (primary) hypertension Status: Acute (7) Gastroesophageal reflux disease: Code(s): K21.9 - Gastro-esophageal reflux disease without esophagitis Status: Acute DS: Summary Hospital Course Reason for hospitalization: Acute UTI Dehydration Tachycardia Premature atrial contractions Benign prostatic hyperplasia Hospital Course: 78-year-old male with history of hypertension, hyperlipidemia, type 2 diabetes, benign prostatic hyperplasia, and GERD presented to the hospital for nausea vomiting and diarrhea. According to the patient he was at [facility] for dinner and felt fine. He returned home and went to bed. He then tried to get out of bed to use the restroom and became extremely weak causing him to fall out of bed onto the floor. He denies hitting his head and loss of consciousness. His then helped him to the restroom where he had a large episode of diarrhea. He denies hematochezia. EMS was called and patient had 3 episodes of emesis. He denies hematemesis.?Upon admission patient was no longer experiencing nausea/vomiting but did have another episode of diarrhea. He was consistently tachycardic during his admission and was started on IV fluids. A d dimer was elevated. Due to tachycardia, elevated d dimer, and recent surgery a CTA chest was performed and found to be negative for PE. Today he denies diarrhea, nausea, vomiting and weakness. He is able to ambulate about his room without assistance. He remains tachycardic and was started on metoprol XL 12.5mg PO. PACs were seen on telemetry. Patient will be discharged on metoprolol XL 12.5mg with a holter monitor in place for 3 days and a plan to follow up with cardiology in 1 week. Patient states understanding. He was found to have a UTI while in the ED and was started on rocephin. He denies burning sensation, increased frequency, pain with urination, and hematuria. Urinalysis cloudy in appearance with 2+ protein, trace glucose and ketones, 1+ blood, 2+ leukocytes, 3-5 RBC and > 100 WBC. Urine culture pending. Patient discharged on Bactrim. Will follow urine cultures and reach out to patient if antibiotic needs adjustment. Patient states understanding. Patient will follow up with primary care provider and cardiology in 1 week. Patient was discharged home with family in a stable condition. Time Spent with Patient Time attestation: Total time spent providing and/or coordinating discharge services: Time spent: Greater than 30 minutes Exam Narrative: ?AF HR 92 RR18 SpO2 97 BP 123/69 General: obese male in no acute respiratory distress who is nontoxic appearing, sitting up in chair with family at bedside. HEENT: Normocephalic. Atraumatic. Pupils equal round reactive to light. Extraocular movement intact. Sclera clear and anicteric. No facial asymmetry. Chest: Lungs are clear to auscultation bilaterally. No wheezes or crackles. CV: Heart was tachycardic with regular rhythm. S1/S2. No murmurs, gallops, or rubs. Abd: Abdomen was soft. Nontender. Nondistended. Positive bowel sounds. No organomegaly or masses. Ext: No clubbing, cyanosis, or edema. 2+ DP pulses bilaterally. Neuro: Patient is alert and oriented x4. Strength is 5/5 in b
[2023-11-19] MEDS: MAGNESIUM OXIDE 400 MG TABLET PO (14:50)
--- NOTE | 2023-11-22 07:13 | PC.NURSE ---
Urine Cx growing Enterobacter cloacea complex and Klebsiella oxytoca. GALO Law, aware of findings. Pt. sent home on appropriate antibiotics.
== END 2023-11-19 15:05 | disposition home or self-care (01) ==
LOC: ANHED 02:45 → ANH3MED 03:53
PROVIDERS: Student in an Organized Health Care Education/Training Program; Admitting Provider Internal Medicine; Emergency Provider Physician Assistant; PCP Family Medicine; Visit Provider Internal Medicine
DX: R11.2 Nausea with vomiting, unspecified (principal); I10 Essential (primary) hypertension; E78.5 Hyperlipidemia, unspecified; E11.9 Type 2 diabetes mellitus without complications; N40.0 Benign prostatic hyperplasia without lower urinary tract symptoms; K21.9 Gastro-esophageal reflux disease without esophagitis; Z79.84 Long term (current) use of oral hypoglycemic drugs; Z79.82 Long term (current) use of aspirin; Z87.891 Personal history of nicotine dependence; Z20.822 Contact with and (suspected) exposure to COVID-19
CPT/HCPCS: 36415; 71275; 80048; 80053; 83036; 83605; 83690; 83735; 85025; 85027; 85380; 87077; 87086; 87088; 87186; 87637; 93005; 96361; 96365; 99285; A9270; G0378; J0696; J1650; J7030; Q9967

== ENCOUNTER 2024-04-29 00:23 | Observation (INO) | payer MEDICARE, OTHER, SELFPAY ==
[2024-04-29] VITALS (26 sets, daily range): BP systolic 135–182; BP diastolic 58–95; PULSE 90–126; RESP 18–40; TEMP 36.6–38.1; O2SAT 92–97; BMI 38.2
--- NOTE | ~2024-04-29 | XR_ITS ---
EXAMINATION: XR chest 1V portable 04/29/2024 01:36 INDICATION: Weakness PROCEDURE: AP portable chest COMPARISON: 10/10/2022 FINDINGS: The lungs are clear. The cardiomediastinal silhouette is within normal limits. There are no pleural effusions. There is no pneumothorax suspected. There is a left shoulder arthroplasty. IMPRESSION: 1: NO ACUTE CARDIOPULMONARY DISEASE. Reviewed, dictated and finalized at location B.
--- NOTE | 2024-04-29 00:25 | ECG_ITS ---
Test Date: 2024-04-29 00:33:34 Measurements Intervals [place] Rate: 124 P: 33 LA: 150 QRS: -49 QRSD: 96 T: 60 QT: 311 QTc: 447 Interpretive Statements SINUS TACHYCARDIA PATTERN CONSISTENT WITH PULMONARY DISEASE INCOMPLETE RIGHT BUNDLE BRANCH BLOCK [90+ ms QRS DURATION, TERMINAL R IN V1/V2, 40+ ms S IN I/aVL/V4/V5/V6] LEFT ANTERIOR FASCICULAR BLOCK [QRS AXIS <= -45, QR IN I, RS IN II] MINIMAL ST DEPRESSION [0.025+ mV ST DEPRESSION] No previous ECG available for comparison Electronically Signed On 04-29-2024 14:44:38 CDT by Elroy Tello M.D.
[2024-04-29 00:42] LABS: Basophils Percent Auto 0.2 % (0.2-1.2); Eosinophils Absolute Auto 0.2 K/mm3 (0-0.3); Eosinophils Percent Auto 1.6 % (0-4.4); Hematocrit 39.3 % (42.0-52.0); Hemoglobin 13.6 g/dL (14.0-18.0); Immature Granulocyte Absolute 0.04 K/mm3 (0.00-0.031); Immature Granulocyte Percent A 0.4 % (0-0.5); Lymphocytes Absolute Auto 1.24 K/mm3 (0.9-3.2); Mean Corpuscular HGB Conc 34.6 g/dl (32-36); Mean Corpuscular Hemoglobin 30.3 pg (26-34); Mean Corpuscular Volume 87.5 fl (80-100); Mean Platelet Volume 10.1 fl (7.4-10.4); Monocytes Absolute Auto 0.7 K/mm3 (0.1-0.6); Monocytes Percent Auto 6.4 % (2.6-8.5); Neutrophils Percent Auto 80.4 % (45.5-73.1); Platelet Count Result 196 k/mm3 (150-375); Red Blood Count 4.49 M/mm3 (4.6-6.20); Red Cell Distribution Width 12.3 % (11.5-14.5); White Blood Count 11.2 K/mm3 (4.5-10.0)
[2024-04-29] MEDS: SODIUM CHLORIDE 0.9% IV 1,000 ML 999 ML IV CONT ×2 (00:42→02:00)
[2024-04-29 00:45] LABS: Add Urine Microscopic? YES; Appearance Urine Cloudy (Clear); Bacteria Urine Rare /hpf; Bilirubin Urine Negative (Negative); Blood Urine 1+ (Negative); Color Urine Yellow (Yellow); Glucose Urine UA 3+ mg/dL (Negative); Ketones Urine Trace mg/dL (Negative); Leukocyte Esterase Ur 2+ LEU/UL (Negative); Nitrate Urine Negative (Negative); Non Pathogenic Casts 0-2; Protein Urine 1+ mg/dL (Negative); RBC Urine 0-2 /hpf (0-2); Specific Grav Ur 1.015 (1.001-1.035); Squamous Epithelial Cell Urine None Seen /hpf (Few); Urobilinogen Urine 0.2 mg/dL (<2.0); WBC Urine >100 /hpf (0-3)
[2024-04-29 00:54] LABS: Alanine Aminotransferase 29 U/L (6-50); Albumin Level 4.2 g/dL (3.5-5.1); Alkaline Phosphatase 90 U/L (38-126); Anion Gap 11 mmol/L (4-12); Aspartate Amino Transferase 28 U/L (17-59); Bilirubin,Total 0.6 mg/dL (0.2-1.3); Blood Urea Nitrogen 15 mg/dL (9-20); Calcium 9.6 mg/dL (8.4-10.2); Carbon Dioxide 26 mmol/L (22-30); Chloride 99 mmol/L (98-107); Estimated CRCL calculation 76 ml/min; Estimated Glomerular Filt Rate > 60; Glucose 295 mg/dL (65-110); Potassium 4.1 mmol/L (3.4-5.0); Sodium 136 mmol/L (137-145)
--- NOTE | 2024-04-29 01:28 | ED.GENADULT ---
HPI - General Adult General Chief complaint: Weakness Stated complaint: WEAKNESS Time Seen by Provider: 04/29/24 00:35 History of Present Illness HPI narrative: Patient is a 79-year-old male who presents to the emergency department this evening accompanied by his due to concern for generalized weakness. states that a couple months ago patient had a similar presentation and at that time he was diagnosed with a urinary tract infection. Patient admits to urinary symptoms stating that he has been going to the bathroom more frequently and does have a malodorous urine. When patient did urinate shortly after arrival to the emergency department, RN did note some greenish discharge from his penis. Patient denies any hematuria or dysuria. Admits to chills, denies any fevers at home and denies any abdominal pain. Patient also denies any chest pain or shortness of breath. No additional symptoms or concerns at this time. Related Data Home Medications Medication Instructions Recorded Confirmed atorvastatin 80 mg tablet 80 mg PO HS 06/06/21 04/29/24 esomeprazole magnesium 40 mg 40 mg PO DAILY 06/06/21 04/29/24 capsule,delayed release lisinopril 10 mg tablet 10 mg PO HS 06/06/21 04/29/24 tamsulosin 0.4 mg capsule 0.4 mg PO HS 06/06/21 04/29/24 aspirin 81 mg tablet,delayed 162 mg PO DAILY 09/03/23 04/29/24 release cyclobenzaprine 10 mg tablet 10 mg PO HS PRN Muscle Spasm 09/03/23 04/29/24 glipizide 5 mg tablet 5 mg PO QAM 09/03/23 04/29/24 ibuprofen 200 mg tablet 600 mg PO BID PRN Pain 09/03/23 04/29/24 Allergies Allergy/AdvReac Type Severity Reaction Status Date / Time mushroom Allergy Severe Anaphylaxis Verified 04/29/24 00:33 olive extract Allergy Unknown Swelling Verified 04/29/24 00:33 Penicillins Allergy Unknown Swelling Verified 04/29/24 00:33 Review of Systems Review of Systems: All systems are reviewed and are negative unless stated otherwise in the HPI. [facility] Past Medical History Medical History Benign prostatic hyperplasia Degenerative joint disease of left shoulder Gastroesophageal reflux disease Hyperlipidemia Hypertension Kidney stone Type 2 diabetes mellitus Surgical History Surgical History History of appendectomy History of arthroscopy of left knee History of cholecystectomy History of reverse total replacement of left shoulder joint (~09/28/23) History of skin graft History of tonsillectomy Family History Family History Sibling Diabetes mellitus Family history of malignant neoplasm Mother Family history of malignant neoplasm Social History Social History Social History: Surrogate medical decision maker: Patricia Mcarthur, spouse. Code status: Full code. Smoking packs per day: 3 Smoking cigarettes per day: 60.0 Years smoked: 18 Smoking pack-years: 54.00 Smoking status: Former smoker Tobacco type: cigarettes Smoking end date: 02/27/75 Alcohol intake: current Drinks per week: 1 Substance use: never Substance use type: does not use Do You Feel Safe in your Home?: Yes Lack of Transportation: No Lack of Food: Never True Current Housing: I Have Housing Concerned About Future Housing: No Difficulty Paying Gas/Electric Bills: No Difficulty Paying for Meds: No Currently Unemployed: No Education: Associate Degree Difficulty w/ Childcare or Family Care: No Living arrangements: with family Additional living arrangements comments: Lives with spouse in [place]. 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 Spiritual care concerns: No Exam Narrative: General: Alert, aw
[2024-04-29 01:33] LABS: Lactic Acid Reflex 3.1 mmol/L (0.7-2.0)
[2024-04-29] MEDS: levoFLOXacin 750 MG/D5W 150 ML 750 MG/150 ML BAG 100 MG IVPB (01:55)
--- NOTE | 2024-04-29 01:56 | PM.IMHP ---
H&P: HPI History of Present Illness Date/Time: 04/29/24 01:56 Chief Complaint: Weakness Narrative: This 79-year-old male patient with past medical history significant of type 2 diabetes mellitus, BPH, hyperlipidemia, GERD, hypertension presents to the emergency room with complaints of having 2 days of persistent weakness, chills, increased fatigue and generally feeling unwell. He denies any chest pain, dyspnea, nausea, vomiting, diarrhea, cough, congestion, headache, urinary burning, urgency or hematuria but does note he has had increased frequency of urination. Upon arrival to the emergency room he was found to be tachycardic, hypertensive and he had a lactic acid of 3.1. He had a marginal elevation in his WBCs of 11.2 with increased absolute neutrophils. Metabolic panel is remarkable for hyperglycemia at 295. Urinalysis demonstrates cloudy urine, 1+ protein, 3+ glucose, trace ketones, 1+ blood, 2+ leuk esterase, greater than 100 wbc's, no epithelials. He was started on Levaquin in the emergency room to cover for the possibility of both urinary and pulmonary sources of sepsis. Chest x-ray is performed. Final result pending. He has received 2 L of IV fluids. Repeat blood pressure is 150/66. Patient is presented to hospitalist service at this time for continued workup and management. Review of Systems Review of Systems: All systems reviewed & are unremarkable except as noted in HPI and below PMFSH Past Medical History Medical History Benign prostatic hyperplasia Degenerative joint disease of left shoulder Gastroesophageal reflux disease Hyperlipidemia Hypertension Kidney stone Type 2 diabetes mellitus Surgical History Surgical History History of appendectomy History of arthroscopy of left knee History of cholecystectomy History of reverse total replacement of left shoulder joint (~09/28/23) History of skin graft History of tonsillectomy Family History Family History Sibling Diabetes mellitus Family history of malignant neoplasm Mother Family history of malignant neoplasm Social History Social History Social History: Surrogate medical decision maker: Patricia Mcarthur, spouse. Code status: Full code. Smoking packs per day: 3 Smoking cigarettes per day: 60.0 Years smoked: 18 Smoking pack-years: 54.00 Smoking status: Former smoker Tobacco type: cigarettes Smoking end date: 02/27/75 Alcohol intake: current Drinks per week: 1 Substance use: never Substance use type: does not use Do You Feel Safe in your Home?: Yes Lack of Transportation: No Lack of Food: Never True Current Housing: I Have Housing Concerned About Future Housing: No Difficulty Paying Gas/Electric Bills: No Difficulty Paying for Meds: No Currently Unemployed: No Education: Associate Degree Difficulty w/ Childcare or Family Care: No Living arrangements: with family Additional living arrangements comments: Lives with spouse in [place]. 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 Spiritual care concerns: No Meds Home Medications and Allergies Home Medications Medication Instructions Recorded Confirmed Type atorvastatin 80 mg tablet 80 mg PO HS 06/06/21 12/29/23 History esomeprazole magnesium 40 mg 40 mg PO HS 06/06/21 12/29/23 History capsule,delayed release lisinopril 10 mg tablet 10 mg PO QAM 06/06/21 12/29/23 History tamsulosin 0.4 mg capsule 0.4 mg PO QAM 06/06/21 12/29/23 History aspirin 81 mg tablet,delayed 162 mg PO DAILY 09/03/23 12/29/23 History release cyclobenzaprine 10 mg tablet 10 mg PO HS PRN Muscle Spasm
--- NOTE | 2024-04-29 02:10 | PC.NURSE ---
Patient brief changed upon request. Patient linen also changed. Patient able to assist with bed and brief change.
[2024-04-29] MEDS: ENOXAPARIN 40 MG/0.4 ML SYRINGE SUB-Q (02:27)
--- NOTE | 2024-04-29 04:01 | ADMGEN ---
This patient, Jonas Mcarthur, was admitted to [facility] S[facility] Room 312-01. Patient/family oriented to hospital policies and general routines including ID bracelet, bed and alarms, visiting hours, pain management, procedures, bathroom and other care routines, personal items, smoking policy, room service/diet, and visiting hours. Information on how to activate the Rapid Response Team has been discussed. Patient/Family are encouraged to report perceived risks to care and to ask questions if they do not understand what they are told or what they should do.
[2024-04-29 04:22] LABS: Reflex Lactic Acid Yes or No Add Lactic
[2024-04-29 04:58] LABS: Lactic Acid 2.4 mmol/L (0.7-2.0)
[2024-04-29 05:00] LABS: Hemoglobin A1C 10.7 % (<5.7)
--- NOTE | 2024-04-29 08:36 | PM.IMPN ---
Progress Note: A&P Assessment and Plan (1) Sepsis: Code(s): A41.9 - Sepsis, unspecified organism Status: Acute Assessment and Plan: As evidenced by tachycardia, tachypnea, leukocytosis, lactic acidosis Sepsis protocol initiated. Repeat lactic acid ordered. Suspected source is urine as evidenced by urinary tract infection. Continue Levaquin daily. Initiated in ER. Blood cultures pending Urine cultures pending Previous urine cultures demonstrating infections of Klebsiella and Enterococcus. Both sensitive to Levaquin. Patient received 2 L IV fluids in ER. Trend and monitor labs and vital signs. -will add 0.9 na at 75 cc for now and monitor i/o - tylenol prn for fever (2) Acute UTI: Code(s): N39.0 - Urinary tract infection, site not specified Status: Acute Assessment and Plan: See plan for 1. Urine culture pending. Previous urine cultures showing growth of Enterococcus and Klebsiella. Both sensitive to Levaquin. Of note- he was admitted on 11/18 for UTI- received rocephin and was discharged on bactrum - may need f/u with urology outpt unless already following (3) Type 2 diabetes mellitus: Code(s): E11.9 - Type 2 diabetes mellitus without complications Status: Chronic Assessment and Plan: Glucose checks a.c. and HS Hypoglycemic protocol Sliding scale insulin low-dose Check A1c Diabetic diet -hgA1c 10.1 will need diabetic education and review of home diabetic meds and adjustments (4) Hyperlipidemia: Code(s): E78.5 - Hyperlipidemia, unspecified Status: Chronic Assessment and Plan: Continue home medications once verified. (5) Hypertension: Code(s): I10 - Essential (primary) hypertension Status: Chronic Assessment and Plan: Continue home medications once verified. (6) Gastroesophageal reflux disease: Code(s): K21.9 - Gastro-esophageal reflux disease without esophagitis Status: Chronic Assessment and Plan: Continue home medications Time Spent With Patient Time with patient: Greater than 35 minutes Subjective Date/time seen: 04/29/24 08:36 Interval history: Weakness Narrative retreieved from H/P: This 79-year-old male patient with past medical history significant of type 2 diabetes mellitus, BPH, hyperlipidemia, GERD, hypertension presents to the emergency room with complaints of having 2 days of persistent weakness, chills, increased fatigue and generally feeling unwell. He denies any chest pain, dyspnea, nausea, vomiting, diarrhea, cough, congestion, headache, urinary burning, urgency or hematuria but does note he has had increased frequency of urination. Upon arrival to the emergency room he was found to be tachycardic, hypertensive and he had a lactic acid of 3.1. He had a marginal elevation in his WBCs of 11.2 with increased absolute neutrophils. Metabolic panel is remarkable for hyperglycemia at 295. Urinalysis demonstrates cloudy urine, 1+ protein, 3+ glucose, trace ketones, 1+ blood, 2+ leuk esterase, greater than 100 wbc's, no epithelials. He was started on Levaquin in the emergency room to cover for the possibility of both urinary and pulmonary sources of sepsis. Chest x-ray is performed. Final result pending. He has received 2 L of IV fluids. Repeat blood pressure is 150/66. Patient is presented to hospitalist service at this time for continued workup and management. 04/29- pt is seen and examined. Low grade fever, was nauseated last night- better this am. He states he feels fantastic and wants to go home if not tonight- tomorrow for sure Review of Systems Review of Systems: All systems reviewed & are unremarkable except as noted in HPI and below Exam Narrative: Constitutional: Elderly male, in bed, alert, oriented, pleasant HEENT: Head is atraumatic, normocephalic. Nose and ears are symmetrical about the face. Patient has moist mucous membranes with patent machine overhauler
[2024-04-29] MEDS: ASPIRIN 81 MG ENTERIC TABLET 162 MG PO (09:02)
[2024-04-29] MEDS: IBUPROFEN 600 MG TABLET PO (09:02)
[2024-04-29] MEDS: SODIUM CHLORIDE 0.9% IV 1,000 ML 75 ML IV CONT (09:02)
[2024-04-29] MEDS: PANTOPRAZOLE 40 MG TABLET PO (09:02)
[2024-04-29] MEDS: INSULIN ASPART (*BKC) 100 UNITS/ML SUB-Q ×2 (09:03→18:02)
[2024-04-29] MEDS: PHENAZOPYRIDINE HCL 100 MG TABLET 200 MG PO ×3 (09:03→18:02)
[2024-04-29 09:04] LABS: Glucose Point of Care 244 mg/dl (65-105)
[2024-04-29 11:36] LABS: Glucose Point of Care 197 mg/dl (65-105)
[2024-04-29 16:43] LABS: Glucose Point of Care 254 mg/dl (65-105)
[2024-04-29 20:24] LABS: Glucose Point of Care 241 mg/dl (65-105)
[2024-04-29] MEDS: TAMSULOSIN HCL 0.4 MG CAPSULE PO (21:12)
[2024-04-29] MEDS: lisinopriL 10 MG TABLET PO (21:12)
[2024-04-29] MEDS: ATORVASTATIN 40 MG TABLET 80 MG PO (21:12)
[2024-04-30] VITALS: PULSE 83
[2024-04-30] MEDS: ENOXAPARIN 40 MG/0.4 ML SYRINGE SUB-Q (02:19)
[2024-04-30] MEDS: levoFLOXacin 750 MG/D5W 150 ML 750 MG/150 ML BAG 100 MG IVPB (02:19)
[2024-04-30 04:00] VITALS: PULSE 88
[2024-04-30 05:44] VITALS: BP 133/60; PULSE 95; RESP 18; TEMP 36.7; O2SAT 95
[2024-04-30 07:06] LABS: Basophils Percent Auto 0.2 % (0.2-1.2); Eosinophils Absolute Auto 0.1 K/mm3 (0-0.3); Eosinophils Percent Auto 0.6 % (0-4.4); Hematocrit 37.2 % (42.0-52.0); Hemoglobin 12.5 g/dL (14.0-18.0); Immature Granulocyte Absolute 0.11 K/mm3 (0.00-0.031); Immature Granulocyte Percent A 0.7 % (0-0.5); Lymphocytes Absolute Auto 1.78 K/mm3 (0.9-3.2); Lymphocytes Percent Auto 11.8 % (18.3-44.2); Mean Corpuscular HGB Conc 33.6 g/dl (32-36); Mean Corpuscular Volume 89.2 fl (80-100); Mean Platelet Volume 10.7 fl (7.4-10.4); Monocytes Absolute Auto 1.1 K/mm3 (0.1-0.6); Monocytes Percent Auto 7.2 % (2.6-8.5); Neutrophils Percent Auto 79.5 % (45.5-73.1); Platelet Count Result 183 k/mm3 (150-375); Red Blood Count 4.17 M/mm3 (4.6-6.20); Red Cell Distribution Width 12.3 % (11.5-14.5); White Blood Count 15.1 K/mm3 (4.5-10.0)
[2024-04-30 07:35] LABS: Alanine Aminotransferase 26 U/L (6-50); Albumin Level 3.7 g/dL (3.5-5.1); Alkaline Phosphatase 87 U/L (38-126); Anion Gap 8 mmol/L (4-12); Aspartate Amino Transferase 24 U/L (17-59); Bilirubin,Total 1.2 mg/dL (0.2-1.3); Blood Urea Nitrogen 10 mg/dL (9-20); Calcium 8.7 mg/dL (8.4-10.2); Carbon Dioxide 24 mmol/L (22-30); Chloride 102 mmol/L (98-107); Estimated CRCL calculation 96 ml/min; Estimated Glomerular Filt Rate > 60; Glucose 255 mg/dL (65-110); Magnesium 1.5 mg/dL (1.6-2.3); Potassium 3.7 mmol/L (3.4-5.0); Sodium 134 mmol/L (137-145)
[2024-04-30 07:52] VITALS: O2SAT 96
[2024-04-30 07:56] LABS: Glucose Point of Care 242 mg/dl (65-105)
[2024-04-30 08:00] VITALS: PULSE 91
[2024-04-30] MEDS: PHENAZOPYRIDINE HCL 100 MG TABLET 200 MG PO ×2 (08:10→11:44)
[2024-04-30] MEDS: MAGNESIUM OXIDE 400 MG TABLET PO (08:10)
[2024-04-30] MEDS: ASPIRIN 81 MG ENTERIC TABLET 162 MG PO (08:10)
[2024-04-30] MEDS: PANTOPRAZOLE 40 MG TABLET PO (08:10)
--- NOTE | 2024-04-30 08:25 | PM.IMPN ---
Progress Note: A&P Assessment and Plan (1) Sepsis: Code(s): A41.9 - Sepsis, unspecified organism Status: Acute Assessment and Plan: As evidenced by tachycardia, tachypnea, leukocytosis, lactic acidosis Sepsis protocol initiated. Repeat lactic acid ordered. Suspected source is urine as evidenced by urinary tract infection. Continue Levaquin daily. Initiated in ER. Blood cultures pending Urine cultures pending Previous urine cultures demonstrating infections of Klebsiella and Enterococcus. Both sensitive to Levaquin. Patient received 2 L IV fluids in ER. Trend and monitor labs and vital signs. -will add 0.9 na at 75 cc for now and monitor i/o - tylenol prn for fever 04/30- reports that his base lie temp is usually (2) Acute UTI: Code(s): N39.0 - Urinary tract infection, site not specified Status: Acute Assessment and Plan: See plan for 1. Urine culture pending. Previous urine cultures showing growth of Enterococcus and Klebsiella. Both sensitive to Levaquin. Of note- he was admitted on 11/18 for UTI- received rocephin and was discharged on bactrum - may need f/u with urology outpt unless already following (3) Type 2 diabetes mellitus: Code(s): E11.9 - Type 2 diabetes mellitus without complications Status: Chronic Assessment and Plan: Glucose checks a.c. and HS Hypoglycemic protocol Sliding scale insulin low-dose Check A1c Diabetic diet -hgA1c 10.1 will need diabetic education and review of home diabetic meds and adjustments (4) Hyperlipidemia: Code(s): E78.5 - Hyperlipidemia, unspecified Status: Chronic Assessment and Plan: Continue home medications once verified. (5) Hypertension: Code(s): I10 - Essential (primary) hypertension Status: Chronic Assessment and Plan: Continue home medications once verified. (6) Gastroesophageal reflux disease: Code(s): K21.9 - Gastro-esophageal reflux disease without esophagitis Status: Chronic Assessment and Plan: Continue home medications Subjective Date/time seen: 04/30/24 08:25 Interval history: Weakness Narrative retreieved from H/P: This 79-year-old male patient with past medical history significant of type 2 diabetes mellitus, BPH, hyperlipidemia, GERD, hypertension presents to the emergency room with complaints of having 2 days of persistent weakness, chills, increased fatigue and generally feeling unwell. He denies any chest pain, dyspnea, nausea, vomiting, diarrhea, cough, congestion, headache, urinary burning, urgency or hematuria but does note he has had increased frequency of urination. Upon arrival to the emergency room he was found to be tachycardic, hypertensive and he had a lactic acid of 3.1. He had a marginal elevation in his WBCs of 11.2 with increased absolute neutrophils. Metabolic panel is remarkable for hyperglycemia at 295. Urinalysis demonstrates cloudy urine, 1+ protein, 3+ glucose, trace ketones, 1+ blood, 2+ leuk esterase, greater than 100 wbc's, no epithelials. He was started on Levaquin in the emergency room to cover for the possibility of both urinary and pulmonary sources of sepsis. Chest x-ray is performed. Final result pending. He has received 2 L of IV fluids. Repeat blood pressure is 150/66. Patient is presented to hospitalist service at this time for continued workup and management. 04/29- pt is seen and examined. Low grade fever, was nauseated last night- better this am. He states he feels fantastic and wants to go home if not tonight- tomorrow for sure. 04/30- pt is seen and exmained Review of Systems Review of Systems: All systems reviewed & are unremarkable except as noted in HPI and below Exam Narrative: Constitutional: Elderly male, in bed, alert, oriented, pleasant HEENT: Head is atraumatic, normocephalic. Nose and ears are symmetrical about the face. Patient has moist mucous membranes wit
--- NOTE | 2024-04-30 11:40 | PM.DS ---
DS: Admitting Diagnosis Discharge Date 04/30 Admitting Diagnosis uti DS: Discharge Diagnosis Discharge Diagnosis (1) Sepsis: Code(s): A41.9 - Sepsis, unspecified organism Status: Acute Assessment and Plan: As evidenced by tachycardia, tachypnea, leukocytosis, lactic acidosis Sepsis protocol initiated. Repeat lactic acid ordered. Suspected source is urine as evidenced by urinary tract infection. Continue Levaquin daily. Initiated in ER. Blood cultures pending Urine cultures pending Previous urine cultures demonstrating infections of Klebsiella and Enterococcus. Both sensitive to Levaquin. Patient received 2 L IV fluids in ER. Trend and monitor labs and vital signs. -will add 0.9 na at 75 cc for now and monitor i/o - tylenol prn for fever 04/30- reports that his base lie temp is usually (2) Acute UTI: Code(s): N39.0 - Urinary tract infection, site not specified Status: Acute Assessment and Plan: See plan for 1. Urine culture pending. Previous urine cultures showing growth of Enterococcus and Klebsiella. Both sensitive to Levaquin. Of note- he was admitted on 11/18 for UTI- received rocephin and was discharged on bactrum - may need f/u with urology outpt unless already following (3) Type 2 diabetes mellitus: Code(s): E11.9 - Type 2 diabetes mellitus without complications Status: Chronic Assessment and Plan: Glucose checks a.c. and HS Hypoglycemic protocol Sliding scale insulin low-dose Check A1c Diabetic diet -hgA1c 10.1 will need diabetic education and review of home diabetic meds and adjustments (4) Hyperlipidemia: Code(s): E78.5 - Hyperlipidemia, unspecified Status: Chronic Assessment and Plan: Continue home medications once verified. (5) Hypertension: Code(s): I10 - Essential (primary) hypertension Status: Chronic Assessment and Plan: Continue home medications once verified. (6) Gastroesophageal reflux disease: Code(s): K21.9 - Gastro-esophageal reflux disease without esophagitis Status: Chronic Assessment and Plan: Continue home medications DS: Summary Hospital Course Hospital Course: Weakness Narrative retrieved from H/P: This 79-year-old male patient with past medical history significant of type 2 diabetes mellitus, BPH, hyperlipidemia, GERD, hypertension presents to the emergency room with complaints of having 2 days of persistent weakness, chills, increased fatigue and generally feeling unwell. He denies any chest pain, dyspnea, nausea, vomiting, diarrhea, cough, congestion, headache, urinary burning, urgency or hematuria but does note he has had increased frequency of urination. Upon arrival to the emergency room he was found to be tachycardic, hypertensive and he had a lactic acid of 3.1. He had a marginal elevation in his WBCs of 11.2 with increased absolute neutrophils. Metabolic panel is remarkable for hyperglycemia at 295. Urinalysis demonstrates cloudy urine, 1+ protein, 3+ glucose, trace ketones, 1+ blood, 2+ leuk esterase, greater than 100 wbc's, no epithelials. He was started on Levaquin in the emergency room to cover for the possibility of both urinary and pulmonary sources of sepsis. Chest x-ray is performed. Final result pending. He has received 2 L of IV fluids. Repeat blood pressure is 150/66. Patient is presented to hospitalist service at this time for continued workup and management. 04/29- pt is seen and examined. Low grade fever, was nauseated last night- better this am. He states he feels fantastic and wants to go home if not tonight- tomorrow for sure 04/30- pt is absolutely has to go home today. Prelim blood cultures are neg. Aware that WBC is high and it needs to be rechecked. Discussed diabetic medication and he is willing to try trulicity or ozempic for better control- he tried metfromin before and it made him very sick Status at Discharge Function
[2024-04-30 11:52] LABS: Glucose Point of Care 281 mg/dl (65-105)
[2024-04-30 12:00] VITALS: PULSE 97
--- NOTE | 2024-05-02 06:28 | PC.NURSE ---
urine cx growing Klebsiella oxytoca. Results given to Sharan Davis NP.
--- NOTE | 2024-05-02 07:23 | PC.NURSE ---
Lizzie reviewed lab and tx. Pt. dc on Levaquin which is susceptible.
== END 2024-04-30 12:50 | disposition home or self-care (01) ==
LOC: ANHED 02:03 → ANH3MEDSUR 03:19
PROVIDERS: Nurse Practitioner Adult Health; Admitting Provider Internal Medicine; Emergency Provider Emergency Medicine; PCP Family Medicine; Visit Provider Internal Medicine
DX: N39.0 Urinary tract infection, site not specified (principal); E86.0 Dehydration; E11.9 Type 2 diabetes mellitus without complications; N40.1 Benign prostatic hyperplasia with lower urinary tract symptoms; K21.9 Gastro-esophageal reflux disease without esophagitis; E78.5 Hyperlipidemia, unspecified; B96.89 Other specified bacterial agents as the cause of diseases classified elsewhere; I10 Essential (primary) hypertension; Z96.612 Presence of left artificial shoulder joint; Z90.49 Acquired absence of other specified parts of digestive tract
CPT/HCPCS: 36415; 71045; 80053; 81001; 82948; 83036; 83605; 83735; 85025; 87040; 87077; 87086; 87088; 87186; 93005; 96361; 96372; 96374; 96376; 99285; A9270; G0378; J1650; J1815; J1956; J7030

== ENCOUNTER 2025-04-11 20:29 | Emergency (ER) | payer MEDICARE, SELFPAY ==
[2025-04-11 20:31] VITALS: BP 185/77; PULSE 94; RESP 17; TEMP 37.2; O2SAT 97
--- OUTSIDE RECORDS SUMMARY | 2025-04-11 20:31 | XMS_ITS ---
Author Organization [facility] Address [address] [place] [address] Care Team Providers Care Hall Tender Name Role Phone Lasha Harris MD Unavailable Isaiah Rubalcava MD Unavailable John Gannon OD Unavailable [phone] Clemencia Dugan [employer] OPERATOR Unavailable [phone] Brayan Jones MD Primary Care Provider [phone] Active Problems Problem Noted Date Diagnosed Date Spondylosis of lumbar region without myelopathy or radiculopathy 02/14/2025 BMI 38.0-38.9,adult 02/06/2025 Other intervertebral disc disorders, lumbar abdelrahman on 11/15/2024 Type 2 diabetes mellitus with hyperlipidemia 10/2023 Assessment & Plan (02/06/2025 9:56 AM CDT): COntinues on atorvastation. No new myalgas/arthalgias and will follow response. Assessment & Plan (08/01/2024 9:13 AM TELEVISION AUDIO ENGINEER): STable on atorvastatin and will continue to follow repsonse. COntinue with no new myalgais./arthalgias. BMI 37.0-37.9, adult 08/01/2024 Assessment & Plan (08/01/2024 9:13 AM TELEVISION AUDIO ENGINEER): ENcourage and seeing benefit from trulicity and wlll continue to follow response. Severe obesity (BMI 35.0-39.9) with comorbidity 08/01/2024 Assessment & Plan (08/01/2024 9:14 AM TELEVISION AUDIO ENGINEER): As above. Medicare annual wellness visit, subsequent 08/01 Assessment & Plan (08/01/2024 9:15 AM TELEVISION AUDIO ENGINEER): Focus of exam is preventative in nature. Reivewed immunizations, reviewed sun/skin cancer screening. Reviewed colon/prostate cancer screening. COntinue to follow with lifesytle and diet modification to continue blood sugar regimen. Spinal stenosis of lumbar re gion with neurogenic claudication 05/29/2024 Assessment & Plan (08/01/2024 9:13 AM TELEVISION AUDIO ENGINEER): COntinue f/u with pain management. Seeing improvement s/p MILD and seeing in f/u tomorrow. Radiculopathy, lumbosacral region 05/29/2024 Hypertension associated with diabetes 01/18/2024 Assessment & Plan (02/06/2025 9:55 AM CDT): Stabl harvinder lsiinopril and will montior esponse. NO chest pains/pressures/palpitations. Assessment & Plan (08/01/2024 9:12 AM TELEVISION AUDIO ENGINEER): Stable on lisinopril. WIll follow repsonse. Reivewed target blood pressure. Personal history of colonic polyps 12/28/2022 Encounter for screening colonoscopy 12/28/2022 Morbid (severe) obesity due to excess calories 0 03/03/2022 Uncontrolled type 2 diabetes mellitus with hyper glycemia 03/10/2021 Assessment & Plan (02/06/2025 9:55 AM CDT): Reviewd blood sugar targets and continue son CGM with good response. WIll follow and montior esponse. Assessment & Plan (08/01/2024 9:12 AM TELEVISION AUDIO ENGINEER): Markedly improved blood sugars. COntinue on CGM and will monitor response. BMI 39.0-39.9,adult 03/10/2021 Assessment & Plan (03/10/2021 9:49 AM CDT): Discussed weight loss management with patient including exercise plan and diet modifications. Subclinical hypothyroidism 02/26/2020 Assessment & Plan (02/26/2020 5:57 PM CDT): -elevated TSH with normal T4 noted on blood work three months ago -will recheck - Wound dehiscence 02/26/2020 Assessment & Plan (02/26/2020 5:57 PM CDT): -patient states he has intermittent wound dehiscence for last approximately 15 years status post appendectomy surgery -will place surgery for referral for further evaluation -patient has no evidence of active infection however some dehiscence the subcutaneous tissue with no visible subcutaneous to fat or intestine. No evidence of infection or induration. Encounter for follow-up surveillance of tonsilla r cancer 06/09/2018 Tonsil cancer 04/05/2018 Cancer Staging:Pathologic stage from 10/03/2015:Stage MICHELLE(T1, N2a, cM0) - Signed by Clemencia Dugan NP on 06/09/2018 Overview (04/05/2018): 1. Left neck mass Left selective neck dissection, levels 2, 3, and 4 ([place] 09/23/2015) Direct laryngoscopy ([place] 09/23/2015) 2. 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 No clincial s/s of recurrence. Assessment & Plan (08/01/2024 9:11 AM TELEVISION AUDIO ENGINEER): No clinical evidence of recurrence. Asymmetrical sensorineural hearing loss 10/16/19 16 Benign colonic polyp 08/22/2011 Gastroesophageal reflux disease 08/22/2011 Assessment & Plan (02/06/2025 9:54 AM CDT): Stable on nexium bid and iwll follow response. NO change at the presne timte. Will continue on PPI. Assessment & Plan (08/01/2024 9:12 AM TELEVISION AUDIO ENGINEER): Stable on nexium. NO dysphagia. No blood in the stools, no black/tarry stools. Assessment & Plan (02/26/2020 5:55 PM CDT): Continue Nexium 40 mg b.i.d. -has been stable on this dose for several years Hyperlipidemia 08/22/2011 Assessment & Plan (02/26/2020 5:56 PM CDT): -continue atorvastatin Hypertension 08/22/2011 Assessment & Plan (02/26/2020 5:56 PM CDT): -patient's blood pressure stable on lisinopril 10 mg daily Osteoarthritis of knee 08/22/2011 Current Treatment and Therapy Plans No current plan information found. Past Treatment and Therapy Plans No past plan information found. Lifetime Dose Tracking * Chemical Lifetime Dose Automatic Entry Manual Entr y Fluoro Time 1.717 minutes 1.717 minutes 0 minutes Air kerma at the reference point (Ka,r) 57.082 mGy 5 7.082 mGy 0 mGy Resolved Problems Problem Noted Date Diagnosed Date Resolved Date Encounter for Medicare annual wellness exam 11/25/2020 03/10/2021 Assessment & Plan (11/25/2020 1:58 PM CDT): Colonoscopy done in 2017. He recently received the second dose of the COVID 19 vaccine. Screening for prostate cancer 11/25/2020 03/10/2021 Assessment & Plan (11/25/2020 1:57 PM CDT): Will check PSA blood test. History of colon polyps 09/24/201710/28 Overview (09/24/2017): Added automatically from request for surgery [id number] Controlled type 2 diabetes m corazon with complication, without long-term current use of insulin 10/01/2015 03/10/2021 Assessment & Plan (11/25/2020 2:00 PM CDT): Will check A1c today. He was on Metformin in the past and he stopped taking this due to side effects. He does not like needles. Assessment & Plan (02/26/2020 6:00 PM CDT): -will recheck hemoglobin A1c is hemoglobin A1c last visit three months ago was 6.9 -may require treatment if hemoglobin A1c over 6.5 -of note, patient was poorly tolerant of metformin may require another medication -patient told to get ophtho eye exam and have it uploaded into our system. Malignant neoplasm of neck 09/25/2015 0 11/14/2019 Obesity 08/22/2011 02/26/2020
--- OUTSIDE RECORDS SUMMARY | 2025-04-11 20:31 | XMS_ITS | Clinical Summary ---
Author Organization [facility] Address [address] [place] [address] Care Team Providers 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 Name Role Phone Lasha Harris MD Unavailable [phone] Isaiah Rubalcava MD Unavailable John Gannon OD Unavailable [phone] Clemencia Dugan NP Unavailable Brayan Jones MD Primary Care Provider [phone] Allergies Active Allergy Reactions Criticality Noted Date Comments Mushroom Anaphylaxis High 11/29/2017 Evans Hives,Angioedema High Penicillins Hives Medium Medications aspirin 81 mg tablet take 2 Tablet (162MG) by oral route every day 0 2 Active magnesium gluconate 200 mg tabletIndications :hypomagnesemia Take 1.25 tablets (250 mg total) by mouth daily Active cyclobenzaprine (FLEXERIL) 10 mg tablet Take 1 tablet (10 mg total) by mouth 3 (three) times a day as needed for muscle spasms 90 tablet 1 3 Active levoFLOXacin (LEVAQUIN) 750 mg tablet Take 1 tablet (750 mg total) by mouth daily 4 Active blood-glucose sensor deviceIndications :Uncontrolled type 2 diabetes mellitus with hyperglycemia (HCC) 1 each every 14 (fourteen) days Apply every fourteen days for glycemic monitoring. Dx:E11.65. Patient on dual agent therapy. 5 each 2 4 Active lisinopriL (PRINIVIL,ZESTRIL ) 10 mg tablet Take 1 tablet (10 mg total) by mouth daily 90 tablet 1 5 Active tamsulosin (FLOMAX) 0.4 mg extended release capsule Take 1 capsule (0.4 mg total) by mouth daily 90 capsule 1 5 Active meloxicam (MOBIC) 15 mg tablet Take 1 tablet (15 mg total) by mouth daily 90 tablet 1 5 02/07/20 26 Active atorvastatin (LIPITOR) 80 mg tablet TAKE ONE TABLET BY MOUTH ONCE DAILY 30 tablet 5 Active glipiZIDE (GLUCOTROL) 5 mg tablet TAKE 1 TABLET (5 MG TOTAL) BY MOUTH DAILY. 90 tablet [address] (PROTONIX) 40 mg EC tablet Take 1 tablet (40 mg total) by mouth daily 90 tablet 4 5 03/29/[address] (NexIUM) 40 mg capsule TAKE ONE CAPSULE BY MOUTH TWICE DAILY 60 capsule 5 03/29/20 25 Discontin ued(Alter lisette therapy) pantoprazole DR (PROTONIX) 40 mg EC tablet Take 1 tablet (40 mg total) by mouth daily 90 tablet 4 5 03/29/20 25 Discontin ued(Reord er) Active Problems Problem Noted Date Diagnosed Date Spondylosis of lumbar region without myelopathy or radiculopathy 02/14/2025 BMI 38.0-38.9,adult 02/06/2025 Other intervertebral disc disorders, lumbar abdelrahman on 11/15/2024 Type 2 diabetes mellitus with hyperlipidemia 10/2023 Assessment & Plan (02/06/2025 9:56 AM CDT): COntinues on atorvastation. No new myalgas/arthalgias and will follow response. Assessment & Plan (08/01/2024 9:13 AM V BELT COVERER): STable on atorvastatin and will continue to follow repsonse. COntinue with no new myalgais./arthalgias. BMI 37.0-37.9, adult 08/01/2024 Assessment & Plan (08/01/2024 9:13 AM V BELT COVERER): ENcourage and seeing benefit from trulicity and wlll continue to follow response. Severe obesity (BMI 35.0-39.9) with comorbidity 08/01/2024 Assessment & Plan (08/01/2024 9:14 AM V BELT COVERER): As above. Medicare annual wellness visit, subsequent 08/01 Assessment & Plan (08/01/2024 9:15 AM V BELT COVERER): Focus of exam is preventative in nature. Reivewed immunizations, reviewed sun/skin cancer screening. Reviewed colon/prostate cancer screening. COntinue to follow with lifesytle and diet modification to continue blood sugar regimen. Spinal stenosis of lumbar re gion with neurogenic claudication 05/29/2024 Assessment & Plan (08/01/2024 9:13 AM V BELT COVERER): COntinue f/u with pain management. Seeing improvement s/p MILD and seeing in f/u tomorrow. Radiculopathy, lumbosacral region 05/29/2024 Hypertension associated with diabetes 01/18/2024 Assessment & Plan (02/06/2025 9:55 AM CDT): Stabl harvinder lsiinopril and will montior esponse. NO chest pains/pressures/palpitations. Assessment & Plan (08/01/2024 9:12 AM V BELT COVERER): Stable on lisinopril. WIll follow repsonse. Reivewed [...] esponse. Assessment & Plan (08/01/2024 9:12 AM V BELT COVERER): Markedly improved blood sugars. COntinue on CGM [...] neck dissection, levels 2, 3, and 4 ([facility] 09/23/2015) Direct laryngoscopy ([facility] 09/23/2015) 2. 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 No clincial s/s of recurrence. Assessment & Plan (08/01/2024 9:11 AM V BELT COVERER): No clinical evidence of recurrence. Asymmetrical sensorineural hearing loss 10/16/19 16 Benign colonic polyp 08/22/2011 Gastroesophageal reflux disease 08/22/2011 Assessment & Plan (02/06/2025 9:54 AM CDT): Stable on nexium bid and iwll follow response. NO change at the presne timte. Will continue on PPI. Assessment & Plan (08/01/2024 9:12 AM V BELT COVERER): Stable on nexium. NO dysphagia. No blood [...] 10 mg daily Osteoarthritis of knee 08/22/2011 Resolved Problems Problem Noted Date Diagnosed Date Resolved Date Encounter for Medicare annual wellness exam 11/25/2020 03/10/2021 Assessment & Plan (11/25/2020 1:58 PM CDT): Colonoscopy done in 2018. He recently received the second dose of the COVID 19 vaccine. Screening for prostate cancer 11/25/2020 03/10/2021 Assessment & Plan (11/25/2020 1:57 PM CDT): Will check PSA blood test. History of colon polyps 09/24/201710/28 Overview (09/24/2017): Added automatically from request for surgery [id number] Controlled type 2 diabetes m ellitus with complication, without long-term current use of [...] neck 09/25/2015 0 11/14/2019 Obesity 08/22/2011 02/26/2020 Encounters Date Type Department Care Team Description 03/29/2025 Orders Only [facility] [address] [phone] Brayan Jones MD 03/29/2025 Telephone [facility] [address] [phone] Brayan Jones MD Prescription Change Order Request 03/14/2025 Telephone [facility] [address] [place] [phone] Armida Walters 03/13/2025 9:18 AM CDT - 03/13/2025 11:59 PM CDT Hospital Encounter [facility] [address] [place] [phone] Jessica Shaw NP Spondylosis of lumbar region without myelopathy or radiculopathy (Primary Dx); Uncontrolled type 2 diabetes mellitus with hyperglycemia (HCC); Spinal stenosis of lumbar region with neurogenic claudication; Radiculopathy, lumbosacral region; Other intervertebral disc disorders, lumbar region; Hypertension associated with diabetes (HCC) Discharge Disposition: Discharge to home or self care 02/28/2025 11:13 AM CDT - 02/28/2025 11:59 PM CDT Hospital Encounter [facility] [address] [place] [phone] Dixon Lopez MD Spinal stenosis of lumbar region with neurogenic claudication; Radiculopathy, lumbosacral region; Spondylosis of lumbar region without myelopathy or radiculopathy Discharge Disposition: Discharge to home or self care 02/14/2025 8:27 AM CDT - 02/14/2025 11:59 PM CDT Hospital Encounter [facility] [address] [place] [phone] Jessica Shaw NP Spondylosis of lumbar region without myelopathy or radiculopathy (Primary Dx); Spinal stenosis of lumbar region with neurogenic claudication; Radiculopathy, lumbosacral region; Primary hypertension Discharge Disposition: Discharge to home or self care 02/13/2025 Telephone [facility] [address] [phone] Brayan Jones MD 02/07/2025 11:01 AM CDT - 02/07/2025 11:59 PM CDT Hospital Encounter [facility] [address] [place] [phone] Dixon Lopez MD Lumbosacral spondylosis without myelopathy [M47.817] (Primary Dx); Spinal stenosis of lumbar region with neurogenic claudication; Radiculopathy, lumbosacral region; Other spondylosis, lumbar region Discharge Disposition: Discharge to home or self care 02/07/2025 Telephone [facility] [address] [phone] Brayan Jones MD Medication Request 02/06/2025 10:00 AM CDT Lab [facility] Outpatient Lab at [address] [phone] 02/06/2025 9:57 AM CDT - 02/06/2025 11:59 PM CDT Hospital Encounter [address] [phone] Prostate cancer screening; Uncontrolled type 2 diabetes mellitus with hyperglycemia (HCC) Discharge Disposition: Discharge to home or self care 02/06/2025 9:30 AM CDT Office Visit [facility] Primary Care at [address] [phone] Brayan Jones MD Uncontrolled type 2 diabetes mellitus with hyperglycemia (HCC) (Primary Dx); Tonsil cancer (HCC); Type 2 diabetes mellitus with hyperlipidemia (HCC); Hypertension associated with diabetes (HCC); Gastroesophageal reflux disease, unspecified whether esophagitis present; Prostate cancer screening; BMI 38.0-38.9,adult; Severe obesity (BMI 35.0-39.9) with comorbidity (HCC) 01/25/2025 11:08 AM CDT - 01/25/2025 11:59 PM CDT Hospital Encounter [facility] [address] [place] [address] Jessica Shaw NP Other spondylosis, lumbar region (Primary Dx); Spinal stenosis of lumbar region with neurogenic claudication; Radiculopathy, lumbosacral region; Other intervertebral disc disorders, lumbar region Discharge Disposition: Discharge to home or self care 01/19/2025 Orders Only [facility] [address] [phone] Brayan Jones MD 01/09/2025 Orders Only [facility] Primary Care at [address] [phone] Brayan Jones MD from Last 3 Months Immunizations Immunization Administration Dates Next Due Influenza, Unspecified 08/01/2024(Deferr ed: Patient Refused),11/23/2023(Deferred: Patient Refused),04/30/2023(Deferred: Patient Refused),08/30/2022(Deferred: Patient Refused),08/30/2021(Deferred: Patient Refused),08/30/2021(Deferred: Patient Refused),08/30/2020(Deferred: Patient Refused) Pfizer SARS-CoV-2 Monovalent Vaccination (12+ Yrs) PURPLE 11/17/2020,10/27/2020 TD Preservative Free 08/30/2011 Surgical History Surgery Date Site/Laterality Comments IR FINE NEEDLE ASPIRATION W IMAGE GUIDANCE 09/04/2015 N/A COLONOSCOPY 08/30/2017 - 08/29/2018 5 years ago. CHOLECYSTECTOMY 08/30/1999 - 08/29/2000 APPENDECTOMY 08/30/1985 - 08/29/1986 NECK SURGERY 09/18/2015 Tonsillar cancer, Dr. Isaiah Rubalcava, [facility] COLONOSCOPY 02/18/2023 FLUORO GUIDED ASPIRATION TMJ LEFT 07/18/2024 Left LUMBAR SPINE SURGERY 07/18/2024 Minimally Invasive Lumbar Decompression ABDOMINAL SURGERY 1985 JOINT REPLACEMENT 09/28/23 Medical History Medical History Date Comments GERD (gastroesophageal reflux disease) Hyperlipidemia Hypertension Cancer (HCC) lt lymph node 20 16 had surgery Malignant neoplasm of neck (HCC) 09/25/2015 History of colon polyps 09/24/2017 Added au tomatically from request for surgery [id number] Borderline diabetes Spinal stenosis of lumbar re gion with neurogenic claudication 05/29/2024 Family History Medical History Relation Name Comments Diabetes Brother West Ricketts Stomach cancer Brother [place] Ricketts Alzheimer's disease Father West Diabetes Father West Cancer Mother Antonio pancreatic canc er Pancreatic cancer Mother Pairleelizabeth biliary cancer Mother Pairleelizabeth Colon cancer Neg Hx Heart disease Neg Hx Prostate cancer Neg Hx Relation Name Status Comments Brother West Ricketts Father West Mother Antonio Social History Tobacco Use Types Packs/Day Years Used Date Smoking Tobacco: Former Cigarettes 3 23 09 [id number] Pipe Smokeless Tobacco: Never Tobacco Cessation:Counseling Given: Not Answered Alcohol Use Standard Drinks/Week Comments Yes 0 (1 standard drink = 0.6 oz pur e alcohol) 2 drinks per week (bowling) AUDIT-C Answer Date Recorded Q1: How often do you have a drink containing alc ohol? 2-4 times a month 05/29/2024 Q2: How many drinks containi ng alcohol do you have on a typical day when you are drinking? 1 or 2 05/29/2024 Q3: How often do you have si x or more drinks on one occasion? Never 05/29/2024 PHQ-2 Answer Date Recorded PHQ-2 Total Score (If total score is 3 or more points, staff should administer the PHQ-9) 0 02/06/2025 PHQ-9 Answer Date Recorded PHQ-9 Total Score 6 11/21/2024 Personal Safety Answer Date Recorded Have you ever been in or are you currently in a harmful physical or emotional relationship or is someone making you feel afraid or unsafe? Denies 02/18/2023 Sex and Gender Information Value Date Recorded Sex Assigned at Not on file Legal Sex Male 2:31 AM V BELT COVERER Gender Identity Not on file Sexual Orientation Not on file Obstetrics History Last Filed Vital Signs Vital Sign Reading Time Taken Comments Blood Pressure 152/65 03/13/2025 9:41 AM CDT Pulse 75 03/13/2025 9:41 AM CDT Temperature 36.8 C (98.3 F) 02/28/2025 11:28 AM CDT Respiratory Rate 17 03/13/2025 9:41 AM CDT Oxygen Saturation 97% 03/13/2025 9:41 AM CDT Inhaled Oxygen Concentration - - Weight 120.2 kg (265 lb) 02/06/2025 9:31 AM CDT Height 177.8 cm (5' 10) 02/06/2025 9:31 AM CDT Body Mass Index 38.02 02/06/2025 9:31 AM CDT Plan of Treatment Health Maintenance Due Date Last Done Comments Hepatitis B Screening 1963 Pneumococcal vaccine 65+ (1 of 2 - PCV) 1966 Zoster Vaccine (1 of 2) 1997 DTaP/Tdap/Td Vaccine (1 - Tdap) 08/31/2011 2 Foot Exam 03/03/2023 03/03/2022, 10/29, 11/14/2019 Covid-19 Vaccine (3 - 2023-2 5 season) 2024 11/17/2020, 10/27/2020 Influenza Vaccine (#1) 2025 Well Visit 65+ 08/01/2025 08/01/2024, 07/01, 11/25/2020, Additional history exists Hemoglobin A1C 08/08/2025 02/06/2025, 12/0 10/2023, 01/18/2024, Additional history exists Albumin Creatinine Ratio, Urine 02/06/2026 02/06/2025, 11/22/2023, 03/03/2022, Additional history exists Depression Screening 02/06/2026 02/06/2025, 11/21/2024, 11/21/2024, Additional history exists Lipid Panel 02/06/2026 02/06/2025, 10/2023, 01/18/2024, Additional history exists eGFR 02/06/2026 02/06/2025, 10/2023, 06/23/2024, Additional history exists Fall Risk Assessment 03/13/2026 03/13/2025, 02/06/2025, 08/01/2024, Additional history exists Dilated Eye Exam 03/05/2027 03/05/2025, , 06/16/2022, Additional history exists Abdominal Aortic Aneurysm (A AA) Screen Completed 09/22/2013 Hepatitis C Screening Completed 09/21/2018 Colon Cancer Screening-CT Colonography Discontinued 02/18/2023, 11/29/2017, 02/09/2012 Colon Cancer Screening-Colonoscopy Discontinued 02/18/2023, 11/29/2017, 02/09/2012 Colon Cancer Screening-DNA Stool Discontinued 02/18/2023, 11/29/2017, 02/09/2012 Colon Cancer Screening-FIT Discontinued 02/18, 11/29/2017, 02/09/2012 Colon Cancer Screening-FOBT Discontinued 01/29, 11/29/2017, 02/09/2012 Colon Cancer Screening-Sigmoidoscopy Discontinued 02/18/2023, 11/29/2017, 02/09/2012 Colorectal Cancer Screening Discontinued Procedures Procedure Name Priority Date/Time Associated Diagnosis Comments DIABETIC EYE EXAM Routine 03/05/2025 11:50 AM CDT PAIN MGMT IMAGING LUMBAR/SACRAL FACET/ MEDIAL BRANCH BLOCK BILATERAL Schedule Routine, Read Routine (OP Routine) 02/28/2025 11:49 AM CDT Spinal stenosis of lumbar region with neurogenic claudication Radiculopathy, lumbosacral region Spondylosis of lumbar region without myelopathy or radiculopathy PAIN MGMT IMAGING LUMBAR/SACRAL FACET/ MEDIAL BRANCH BLOCK BILATERAL Schedule Routine, Read Routine (OP Routine) 02/07/2025 12:06 PM CDT Spinal stenosis of lumbar region with neurogenic claudication Radiculopathy, lumbosacral region Other spondylosis, lumbar region EGFR Routine 02/06/2025 9:57 AM CDT Uncontrolled type 2 diabetes mellitus with hyperglycemia (HCC) DIFFERENTIAL AUTO Routine 02/06/2025 9:5 7 AM CDT Uncontrolled type 2 diabetes mellitus with hyperglycemia (HCC) LIPID PANEL Routine 02/06/2025 9:57 AM CDT Uncontrolled type 2 diabetes mellitus with hyperglycemia (HCC) COMPREHENSIVE METABOLIC PANEL Routine 02/06/2025 9:57 AM CDT Uncontrolled type 2 diabetes mellitus with hyperglycemia (HCC) CBC WITH AUTO DIFFERENTIAL Routine 02/06/2025 9:57 AM CDT Uncontrolled type 2 diabetes mellitus with hyperglycemia (HCC) HEMOGLOBIN A1C Routine 02/06/2025 9:57 AM CDT Uncontrolled type 2 diabetes mellitus with hyperglycemia (HCC) ALBUMIN CREATININE RATIO, URINE Routine 02/06/2025 9:57 AM CDT Uncontrolled type 2 diabetes mellitus with hyperglycemia (HCC) PSA SCREEN Routine 02/06/2025 9:57 AM CDT Prostate cancer screening COLONOSCOPY 02/18/2023 7:38 AM CDT HEPATITIS C ANTIBODY Routine 09/21/2018 10:30 AM V BELT COVERER Preventative health care HM ABDOMINAL AORTIC ANEURYSM SCREENING Routine 09/22/2013 from Last 3 Months or Most Recently Relevant to Health Maintenance Results * Diabetic Eye Exam (03/05/2025 11:50 AM CDT) 03/05/2025 11:5 0 AM CDT us Historical Provider HEALTH MAINTENANCE Final Result * Imaging Lumbar/Sacral Facet Medial Branch Block Bilateral ([id number]) (02/28/2025 11:49 AM CDT) Narrative [facility] - 02/28/2025 11:49 AM CDT The images from this study are not interpreted by Radiology. Please refer to the physician's procedure / OR operative note. us Jessica Sabino Shaw CHAINSTITCH ELASTIC ATTACHER IMG PAIN MGMT PROCEDURE S Final Result [facility] * Imaging Lumbar/Sacral Facet Medial Branch Block Bilateral ([id number]) (02/07/2025 12:06 PM CDT) Narrative [facility] - 02/07/2025 12:07 PM CDT The images from this study are not interpreted by Radiology. Please refer to the physician's procedure / OR operative note. us Jessica Spencerelizabeth Gregorybucky CHAINSTITCH ELASTIC ATTACHER IMG PAIN MGMT PROCEDURE S Final Result Performing Organization Address [facility] Co de Phone Number [facility] * eGFR (02/06/2025 9:57 AM CDT) eGFR 89 >=60 mL/min/1. 73 m2 Comment: Interpretive Data Reference Interval Normal >/= 90 mL/min/1.73m2 Mildly decreased* 60 - 89 mL/min/1.73m2 Mildly to moderately decreased 45 - 59 mL/min/1.73m2 Moderately to severely decreased 30 - 44 mL/min/1.73m2 Severely decreased 15 - 29 mL/min/1.73m2 Kidney Failure < 15 mL/min/1.73m2 *Relative to young adult level Estimated glomerular filtration rate is determined by the 2020 CKD-EPI equation recommended by the National Kidney Foundation (A Unifying Approach to GFR Estimation: Recommendations of the NKF-ASK Task Force on Reassessing the Inclusion of Race in Diagnosing Kidney Disease, JASN 202). The CKD-EPI equation should not be used for patients with unstable renal function and has not been validated in children and those over 70. Current interpretive data was last reviewed 2021. Blood 02/06/2025 9:57 AM CDT 02/06/2025 3:05 PM CDT us Brayan Jones MD LAB BLOOD ORDERABLES Jennie l Result [facility] [address] Department [place] [address] * Differential, auto (02/06/2025 9:57 AM CDT) Neutrophil abs 3.52 1.50 - 6.50 K/cumm Imm gran abs 0.02 0.00 - 0.10 K/cumm [facility] Lymphocyte abs 1.88 0.80 - 3.30 K/cumm [facility] Monocyte abs 0.63 0.20 - 0.80 K/cumm [facility] Eosinophil abs 0.38 0.00 - 0.50 K/cumm [facility] Basophil abs 0.03 0.00 - 0.10 K/cumm [facility] Neutrophil pct 54.4 % [facility] Comment: Interpretive Data Percent cell count reference ranges are not reported, since discordance with absolute values may lead to misinterpretation of CBC data. Current Interpretive Data was last revised on 2017. Imm gran pct 0.3 % [facility] Comment: Interpretive Data Percent cell count reference ranges are not reported, since discordance with absolute values may lead to misinterpretation of CBC data. Current Interpretive Data was last revised on 2017. Lymphocyte pct 29.1 % [facility] Comment: Interpretive Data Percent cell count reference ranges are not reported, since discordance with absolute values may lead to misinterpretation of CBC data. Current Interpretive Data was last revised on 2017. Monocyte pct 9.8 % [facility] Comment: Interpretive Data Percent cell count reference ranges are not reported, since discordance with absolute values may lead to misinterpretation of CBC data. Current Interpretive Data was last revised on 2017. Eosinophil pct 5.9 % [facility] Comment: Interpretive Data Percent cell count reference ranges are not reported, since discordance with absolute values may lead to misinterpretation of CBC data. Current Interpretive Data was last revised on 2017. Basophil pct 0.5 % [facility] Comment: Interpretive Data Percent cell count reference ranges are not reported, since discordance with absolute values may lead to misinterpretation of CBC data. Current Interpretive Data was last revised on 2017. Blood 02/06/2025 9:57 AM CDT 02/06/2025 2:53 PM CDT Brayan Jones MD LAB BLOOD ORDERABLES Jennie l Result Performing Organization Address [facility] de Phone Number ENRRIQUE [address] [facility] [place] [address] * PSA screen (02/06/2025 9:57 AM CDT) Pathologist [facility] PSA-Total 3.79 <=6.20 ng/mL Comment: Interpretive Data AGE SEX REFERENCE INTERVAL 0 minutes-150 years Female None 0 minutes-49 years Male None 50-59 years Male 0-3.90 60-69 years Male 0-5.40 70-79 years Male 0-6.20 80-150 years Male 0-6.20 The [employer] PSA Total assay procedure was used. Results from different manufacturers or methods may not be comparable. Serial testing should be performed using the same method. Current interpretive data last revised 22. Blood 02/06/2025 9:57 AM CDT 02/06/2025 2:52 PM CDT Brayan Jones MD LAB BLOOD ORDERABLES Jennie l Result Performing Organization Address [facility] Co de Phone Number ENRRIQUE [address] [facility] [place] [address] * CBC with auto differential (02/06/2025 9:57 AM CDT) WBC 6.46 3.80 - 9.90 K/cumm Hgb 14.1 13.0 - 17.5 g/dL [facility] Hct 43.0 38.9 - 50.3 % [facility] Plt 181 150 - 400 K/cumm [facility] MPV 10.3 9.1 - 12.3 fL [facility] RBC 4.76 4.30 - 5.80 M/cumm [facility] MCV 90.3 81.3 - 96.4 fL [facility] MCH 29.6 27.1 - 33.3 pg [facility] MCHC 32.8 32.3 - 35.7 g/dL [facility] RDW CV 12.3 11.1 - 14.9 % [facility] RDW SD 40.8 35.7 - 48.1 fL [facility] NRBC abs 0.00 0.00 - 0.01 K/cumm [facility] Blood 02/06/2025 9:57 AM CDT 02/06/2025 2:53 PM CDT Brayan Jones MD LAB BLOOD ORDERABLES Jennie l Result Performing Organization Address [facility] de Phone Number [facility] [address] [place], [place] [id number] * (ABNORMAL) Albumin Creatinine Ratio, Urine (02/06/2025 9:57 AM CDT) Albumin Ur 34.1 mg/L Comment: Interpretive Data No reference range established. Current interpretive data was last revised 2019. Creatinine Ur 113.1 mg/dL [facility] Comment: Interpretive Data No reference range established. Current interpretive data was last revised 2019. Albumin Creatinine Ratio, Ur 30(H) 1 - 29 mg/g [facility] Urine 02/06/2025 9:57 AM CDT 02/06/2025 2:55 PM CDT Brayan Jones MD LAB URINE ORDERABLES Jennie l Result Performing Organization Address [facility] Co de Phone Number [facility] [address] [facility] [place] [address] * (ABNORMAL) Hemoglobin A1c (02/06/2025 9:57 AM CDT) Hgb A1C 7.2(H) 4.0 - 5.6 % Estimated Average Glucose 160 mg/dL [facility] Comment: The ADA recommends reporting an estimated Average Glucose (eAG) with all Hemoglobin A1c results using the equation derived from a study of 507 normal and diabetic adults. Minority populations were underrepresented and children were not included. (Diabetes Care 31:1801-7377, 2008). The eAG is not equivalent to a fasting glucose. Blood 02/06/2025 9:57 AM CDT 02/06/2025 2:53 PM CDT us Brayan Jones MD LAB BLOOD ORDERABLES Jennie goddard Result ENRRIQUE [address] Department [place] [address] * (ABNORMAL) Lipid panel (02/06/2025 9:57 AM CDT) Cholesterol 182 30 - 199 mg/dL Comment: Interpretive Data Ages < or = 19 years Acceptable: <170 mg/dL Borderline high: 170-199 mg/dL High: >or= 200 mg/dL Ages > or = 20 years Desirable: <200 mg/dL Borderline high: 200-239 mg/dL High: >or= 240 mg/dL Literature References: 1. Expert Panel on Integrated Guidelines for Cardiovascular Health and Risk Reduction in Children and Adolescents. Pediatrics 2011;128:S213 2. NCEP Expert Panel. Circulation 2004;110:227 Current Interpretive Data was last revised on 2018. Triglycerides 124 <=149 mg/dL ENRRIQUE TYSON Comment: Interpretive Data Ages < or = 9 years Acceptable: <75 mg/dL Borderline high: 75-99 mg/dL High: >or= 100 mg/dL Ages 10 to 20 years Acceptable: <90 mg/dL Borderline high: 90-129 mg/dL High: >or= 130 mg/dL Ages > or = 20 years Desirable: <150 mg/dL Borderline high: 150-199 mg/dL High: 200-499 mg/dL Very high: >or= 499 mg/dL Literature References: 1. Expert Panel on Integrated Guidelines for Cardiovascular Health and Risk Reduction in Children and Adolescents. Pediatrics 2011;128:S213 2. NCEP Expert Panel. Circulation 2004;110:227 Current Interpretive Data was last revised on 2018. HDL 39(L) >=40 mg/dL E[facility]QUE TYSON Comment: Interpretive Data Ages < or = 19 years Acceptable: >45 mg/dL Borderline low: 40-45 mg/dL Low: <40 mg/dL Ages > or = 20 years Desirable: >or= 60 mg/dL Low: <40 mg/dL Literature References: 1. Expert Panel on Integrated Guidelines for Cardiovascular Health and Risk Reduction in Children and Adolescents. Pediatrics 2011;128:S213 2. NCEP Expert Panel. Circulation 2004;110:227 Current Interpretive Data was last revised on 2018. LDL, calculated 121 <=129 mg/dL ENRRIQUE TYSON Comment: Interpretive Data Ages < or = 19 years Acceptable: <110 mg/dL Borderline high: 110-129 mg/dL High: >or= 130 mg/dL Ages > or = 20 years Optimal: <100 mg/dL Near optimal: 100-129 mg/dL Borderline high: 130-159 mg/dL High: >160 mg/dL Calculated using the Davis LDL-C estimating equation. This equation was implemented on 2024. Prior to this date LDL-C was estimated using the Friedewald equation. Literature References: 1. Expert Panel on Integrated Guidelines for Cardiovascular Health and Risk Reduction in Children and Adolescents. Pediatrics 2011;128:S213 2. NCEP Expert Panel. Circulation 2004;110:227 3. Davis Mcginnis et al. DAVIS Cardiol. 2020 December 28;5(5):540-548. doi: 10.1001/jamacardio.2020.0013 Current Interpretive Data was last revised on 2024. Non-HDL Cholesterol 143 mg/dL ENR[facility]QUE TYSON Comment: Interpretive Data Ages < or = 19 years Acceptable: <120 mg/dL Borderline high: 120-144 mg/dL High: >145 mg/dL Ages > or = 20 years When triglycerides are >200 mg/dL, Non-HDL cholesterol is a secondary target of therapy with treatment goals that are 30 mg/dL greater than the LDL cholesterol target. Literature References: 1. Expert Panel on Integrated Guidelines for Cardiovascular Health and Risk Reduction in Children and Adolescents. Pediatrics 2011;128:S213 2. NCEP Expert Panel. Circulation 2004;110:227 Current Interpretive Data was last revised on 2018. Chol/HDL ratio 5 ENRRIQUE TYSON Blood 02/06/2025 9:57 AM CDT 02/06/2025 2:52 PM CDT Brayan Jones MD LAB BLOOD ORDERABLES Jennie l Result ENRRIQUE TYSON [address] [address] [place] [address] * Comprehensive metabolic panel (02/06/2025 9:57 AM CDT) Sodium 137 135 - 145 mmol/L Potassium, pl 4.1 3.3 - 4.9 mmol/L [facility] Chloride 101 97 - 110 mmol/L [facility] CO2 24 22 - 32 mmol/L [facility] Anion gap 12 2 - 15 mmol/L [facility] BUN 15 6 - 25 mg/dL [facility] Creatinine 0.88 0.80 - 1.30 mg/dL [facility] Glucose 150 70 - 199 mg/dL [facility] Comment: Interpretive Data Fasting glucose >/= 126 mg/dl is diagnostic for diabetes. Fasting is defined as no caloric intake for at least 8 hours. Fasting glucose between 100 mg/dl to 125 mg/dl is diagnostic of prediabetes. In a patient with classic symptoms of hyperglycemia or hyperglycemic crisis, a random glucose >/= 200 mg/dl is diagnostic for diabetes. In the absence of unequivocal hyperglycemia, results should be confirmed by repeat testing. The classification and Diagnosis of Diabetes Diabetes Care 202; 46: S19-S40. Current interpretive data was last revised 2022. Calcium 9.1 8.5 - 10.3 mg/dL [facility] Bilirubin, total 0.5 0.1 - 1.2 mg/dL [facility] Protein, pl 6.7 6.5 - 8.5 g/dL [facility] Albumin 3.8 3.5 - 5.0 g/dL [facility] Alk phos 78 40 - 130 Units/L [facility] ALT 26 7 - 55 Units/L [facility] AST 26 10 - 50 Units/L [facility] Blood 02/06/2025 9:57 AM CDT 02/06/2025 2:52 PM CDT Brayan Jones MD LAB BLOOD ORDERABLES Jennie l Result ENRRIQUE TYSON [address] Department [place] [address] * COLONOSCOPY (02/18/2023 7:38 AM CDT) Anatomical Region Laterality Modality Other Narrative Procedure Note John Gutierrez MD - 02/18/2023 7:38 AM CDT [facility] Patient Name: Ramo Mcarthur Procedure Date: 02/18/2023 7:38 AM Date of : 1945 Admit Type: Outpatient Age: 77 Gender: Male Attending MD: Jonh Gutierrez M.D. Room: [facility] END[facility]COPY ROOM 1 Note Status: Finalized Patient Profile: Last Colonoscopy: November 2017. Procedure: Colonoscopy Indications: High risk colon cancer surveillance: Personalhistory of colonic polyps Referring MD: Brayan Jones M.D. Providers: John Gutierrez M.D. Impression: - Hemorrhoids found on perianal exam. - One 2 mm polyp in the ascending colon, removedwith a jumbo cold forceps. Resected and retrieved. - Diverticulosis in the sigmoid colon. - The examination was otherwise normal. Recommendation: - Discharge patient to home. - Resume previous diet. - Continue present medications. - Await pathology results. - Repeat colonoscopy in 5 years for surveillance. - Return to primary care physician as previously scheduled. Medicines: Propofol per Anesthesia Complications: No immediate complications. Estimated Blood Loss: Estimated blood loss: none. Procedure: Pre-Anesthesia Assessment: - This assessment was completed [Time ofAssessment] prior to the administration of sedation. The benefits, risks and alternatives of theprocedure and sedation were discussed and informed consentwas obtained. All questions were answered. Please referto the signed informed consent document in the medical record. The bowel preparation used was Miralax and bisacodyl tablets via single dose instruction. The scope was passed under direct vision. TheColonoscope [id number] was introduced through the anus and advanced to the the cecum, identified by appendiceal orifice and ileocecal valve. The colonoscopy was performed without difficulty. The patient tolerated the procedure well. The qualityof the bowel preparation was excellent. The ileocecal valve, appendiceal orifice, and rectum were photographed. Findings: Hemorrhoids were found on perianal exam. A 2 mm polyp was found in the ascending colon. The polyp was sessile. The polyp was removed with a jumbo cold forceps. Resection andretrieval were complete. Verification of patient identification for [facility] was done by the physician and nurse using the patient's name andbirth date. Estimated blood loss was minimal. Multiple small and large-mouthed diverticula were found in thesigmoid colon. The exam was otherwise without abnormality. Electronically signed by John Gutierrez M.D. John Gutierrez M.D. 02/18/2023 9:21:12 AM Number of Addenda: 0 Note Initiated On: 02/18/2023 7:38 AM Procedure Code(s): --- Professional --- 19390, Colonoscopy, flexible; with biopsy, single or multiple --- Technical --- 81897, Colonoscopy, flexible; with biopsy, single or multiple Diagnosis Code(s): --- Professional --- K57.30, Diverticulosis of large intestine without perforation orabscess without bleeding D12.2, Benign neoplasm of ascending colon K64.9, Unspecified hemorrhoids Z86.010, Personal history of colonic polyps --- Technical --- K57.30, Diverticulosis of large intestine without perforation orabscess without bleeding D12.2, Benign neoplasm of ascending colon K64.9, Unspecified hemorrhoids Z86.010, Personal history of colonic polyps CPT copyright 2020 [employer]. All rights reserved. The codes documented in this report are preliminary and upon customer retention specialist reviewmay be revised to meet current compliance requirements. Recognized by the [employer] for promoting quality in endoscopy John Gutierrez MD ENDOSCOPY PROCEDURES Final Re sult * Hepatitis C antibody (09/21/2018 10:30 AM V BELT COVERER) Pathologist [facility] Hep C Ab Nonreactive Nonreactive [facility] Comment: Interpretive Data Positive results should be confirmed by a molecular method. If positive, a second separately collected sample should be submitted for Hepatitis C Virus (HCV) RNA Detection and Quantitation by Real-Time Reverse Ice Rink Attendant-PCR (RT-PCR). Current interpretive data was last revised on 2016. Blood specimen (specimen) 09/21/2018 10:30 AM V BELT COVERER 09/21/2018 1:41 PM V BELT COVERER Narrative [facility] - 09/22/2018 10:15 AM [facility] [place] Bobby Mills MD LAB MICROBIOLOGY - GEN ERAL ORDERABLES Edited Result - Final [facility] [place] [address] * ABDOMINAL AORTIC ANEURYSM SCREENING (09/22/2013) Pathologist [facility] ABDOMINAL AORTIC ANEURYSM SCREENING Normal Historical Provider HEALTH MAINTENANCE Final Result from Last 3 Months or Most Recently Relevant to Health Maintenance Insurance [facility] MEDICARE RAILROAD [facility] MEDICARE [facility] MEDICARE RAILROAD U[employer] MEDICARE [facility] Address: [address] [address] [place] [address] Advance Directives For more information, please contact: [phone] Documents on File Type Date Recorded Patient Internal Affairs Commander Expl anation ADVANCE DIRECTIVE 09/19/2018 12:15 PM * Full Code (Latest Code Status on File) Date Activated Date Inactivated Comments 02/18/2023 7:50 AM 02/18/2023 2:15 PM * Full Code Date Activated Date Inactivated Comments 02/18/2023 7:50 AM 02/18/2023 7:50 AM * Full Code Date Activated Date Inactivated Comments 11/29/2017 7:17 AM 11/29/2017 11:00 AM Care Teams 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 Relationship Specialty Start Date End Date Brayan Jones MD [address] [place] [address] PCP - General Family Medicine 03/18/22 Lasha Harris MD [address] [place] [address] Radiation Oncologist Radiation Oncology 06/09/18 Isaiah Rubalcava MD [address] [facility] DEPT OTOLARYNGOLOGY, [address] [address] Referring Physician Otolaryngology 06/09/18 John Gannon, OD [address] [facility] DEPT OTOLARYNGOLOGY, [address] [address] Drum Straightener 09/21/18 Clemencia Dugan NP [address] [place] [address] Nurse Practitioner Nurse Practitioner 05/01/21
--- OUTSIDE RECORDS SUMMARY | 2025-04-11 20:31 | XMS_ITS | Encounter Summary ---
Author Organization [facility] Address [address] [place] [address] Phone Care Team Providers Care Oxygen Equipment Technician Name Role Phone Bobby Mills MD Primary Care Provider Lasha Harris MD Unavailable [phone] Isaiah Rubalcava MD Unavailable [phone] John Gannon OD Unavailable [phone] Dilcia Snyder MD Primary Care Provider [phone] Clemencia Dugan EQUAL OPPORTUNITY SPECIALIST Unavailable [phone] Dilcia Snyder MD Primary Care Provider [phone] Brayan Jones MD Primary Care Provider [phone] Encounter Details Date Type Department Care Team (Late st Contact Info) Description 10/08/2017 Orders Only [facility] ProviderCarla MD [address] [place] [address] Social History Tobacco Use Types Packs/Day Years Used Date Smoking Tobacco: Former Cigarettes Q uit: 08/30/1975 Alcohol Use Standard Drinks/Week Comments Yes 0 (1 standard drink = 0.6 oz pur e alcohol) Sex and Gender Information Value Date Recorded Sex Assigned at Not on file Legal Sex 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 us Historical Provider MD [facility] XR PROCEDURES Final R esult documented in this encounter Visit Diagnoses Not on filedocumented in this encounter Care Teams Oxygen Equipment Technician Relationship Specialty Start Date End Date Bobby Mills MD PCP - General 10/30/16 12/18/19 Dilcia Snyder MD [address] [place], [place] [address]DAVID Diane [facility] [address] [place] [address] PCP - General Internal Medicine 12/19/19 03/02/22 Dilcia Snyder MD [address] [place], [place] [address]DAVID Diane [facility] [address] [place] [address] PCP - General 03/03/22 03/17/22 Brayan Jones MD [address] [place] [address] PCP - General Family Medicine 03/18/22 Lasha Harris MD [address] [facility] [address] [place] [address] Radiation Oncologist Radiation Oncology 06/09/18 Isaiah Rubalcava MD [address] [facility] DEPT OTOLARYNGOLOGY, [facility] [address] [place] [address] Referring Physician Otolaryngology 06/09/18 John Gannon, OD [address] [facility] [facility] OT[address]ARY[facility]OLOGY, [address] [place] [address] Head Screen Worker 09/21/18 Clemencia Dugan NP [address] [place] [address] Nurse Practitioner Nurse Practitioner 05/01/21 documented as of this encounter
[2025-04-11 21:09] LABS: Add Urine Microscopic? YES; Appearance Urine Clear (Clear); Glucose Urine UA Negative (Negative); Leukocyte Esterase Ur Negative LEU/UL (Negative); Nitrate Urine Negative (Negative); Non Pathogenic Casts 0-2; Specific Grav Ur 1.005 (1.001-1.035)
--- OUTSIDE RECORDS SUMMARY | 2025-04-11 22:57 | XMS_ITS | Clinical Summary ---
Author Organization [facility] Address [address] [place] [address] Care Team Providers Care Conservation Biology Professor Name Role Phone Lasha Harris MD Unavailable Isaiah Rubalcava MD Unavailable [phone] John Gannon OD Unavailable [phone] Clemencia Dugan NP Unavailable Brayan Jones MD Primary Care Provider [phone] Allergies Active Allergy Reactions Criticality Noted Date Comments Mushroom Anaphylaxis High 11/29/2017 [place] Hives,Angioedema High Penicillins Hives Medium Medications aspirin [...] response. Assessment & Plan (08/01/2024 9:13 AM PIANO ASSEMBLER): STable on atorvastatin and will continue to follow repsonse. COntinue with no new myalgais./arthalgias. BMI 37.0-37.9, adult 08/01/2024 Assessment & Plan (08/01/2024 9:13 AM PIANO ASSEMBLER): ENcourage and seeing benefit from trulicity and wlll continue to follow response. Severe obesity (BMI 35.0-39.9) with comorbidity 08/01/2024 Assessment & Plan (08/01/2024 9:14 AM PIANO ASSEMBLER): As above. Medicare annual wellness visit, subsequent 08/01 Assessment & Plan (08/01/2024 9:15 AM PIANO ASSEMBLER): Focus of exam is preventative in nature. Reivewed immunizations, reviewed sun/skin cancer screening. Reviewed colon/prostate cancer screening. COntinue to follow with lifesytle and diet modification to continue blood sugar regimen. Spinal stenosis of lumbar re gion with neurogenic claudication 05/29/2024 Assessment & Plan (08/01/2024 9:13 AM PIANO ASSEMBLER): COntinue f/u with pain management. Seeing improvement s/p MILD and seeing in f/u tomorrow. Radiculopathy, lumbosacral region 05/29/2024 Hypertension associated with diabetes 01/18/2024 Assessment & Plan (02/06/2025 9:55 AM CDT): Stabl harvinder lsiinopril and will montior esponse. NO chest pains/pressures/palpitations. Assessment & Plan (08/01/2024 9:12 AM PIANO ASSEMBLER): Stable on lisinopril. WIll follow repsonse. Reivewed [...] esponse. Assessment & Plan (08/01/2024 9:12 AM PIANO ASSEMBLER): Markedly improved blood sugars. COntinue on CGM [...] neck dissection, levels 2, 3, and 4 ([place] 09/23/2015) Direct laryngoscopy ([place] 09/23/2015) 2. 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 No clincial s/s of recurrence. Assessment & Plan (08/01/2024 9:11 AM PIANO ASSEMBLER): No clinical evidence of recurrence. Asymmetrical sensorineural hearing loss 10/16/19 16 Benign colonic polyp 08/22/2011 Gastroesophageal reflux disease 08/22/2011 Assessment & Plan (02/06/2025 9:54 AM CDT): Stable on nexium bid and iwll follow response. NO change at the presne timte. Will continue on PPI. Assessment & Plan (08/01/2024 9:12 AM PIANO ASSEMBLER): Stable on nexium. NO dysphagia. No blood [...] (09/24/2017): Added automatically from request for surgery [id number] Controlled type 2 diabetes m ellitus with [...] Description 03/29/2025 Orders Only [facility] [address] [phone] Brayan Jones MD 03/29/2025 Telephone [facility] [address] [phone] Brayan Jones MD Prescription Change Order Request 03/14/2025 Telephone [facility] [address] [place] [phone] Armida Walters 03/13/2025 9:18 AM CDT - 03/13/2025 11:59 PM CDT Hospital Encounter [facility] [address] [place] [phone] Jessica Shaw NP Spondylosis of lumbar region without myelopathy or radiculopathy (Primary Dx); Uncontrolled type 2 diabetes mellitus with hyperglycemia (HCC); Spinal stenosis of lumbar region with neurogenic claudication; Radiculopathy, lumbosacral region; Other intervertebral disc disorders, lumbar region; Hypertension associated with diabetes (HCC) Discharge Disposition: Discharge to home or self care 02/28/2025 11:13 AM CDT - 02/28/2025 11:59 PM CDT Hospital Encounter [facility] [address] [place] [phone] Dixon Lopez MD Spinal stenosis of lumbar region with neurogenic claudication; Radiculopathy, lumbosacral region; Spondylosis of lumbar region without myelopathy or radiculopathy Discharge Disposition: Discharge to home or self care 02/14/2025 8:27 AM CDT - 02/14/2025 11:59 PM CDT Hospital Encounter [facility] [address] [place] [id number] Jessica Shaw NP Spondylosis of lumbar region without myelopathy or radiculopathy (Primary Dx); Spinal stenosis of lumbar region with neurogenic claudication; Radiculopathy, lumbosacral region; Primary hypertension Discharge Disposition: Discharge to home or self care 02/13/2025 Telephone [facility] [address] [phone] Brayan Jones MD 02/07/2025 11:01 AM CDT - 02/07/2025 11:59 PM CDT Hospital Encounter [facility] [address] [place] [phone] Dixon Lopez MD Lumbosacral spondylosis without myelopathy [M47.817] (Primary Dx); Spinal stenosis of lumbar region with neurogenic claudication; Radiculopathy, lumbosacral region; Other spondylosis, lumbar region Discharge Disposition: Discharge to home or self care 02/07/2025 Telephone [facility] [address] [phone] Brayan Jones MD Medication Request 02/06/2025 10:[address] [facility] Out[facility] at [address] [phone] 02/06/2025 9:57 AM CDT - 02/06/2025 11:59 PM CDT Hospital Encounter [address] [address] Prostate cancer screening; Uncontrolled type 2 diabetes mellitus with hyperglycemia (HCC) Discharge Disposition: Discharge to home or self care 02/06/2025 9:30 AM CDT Office Visit [facility] Primary Care at [address] [phone] Brayan Jones MD Uncontrolled type 2 diabetes mellitus with hyperglycemia (HCC) (Primary Dx); Tonsil cancer (HCC); Type 2 diabetes mellitus with hyperlipidemia (HCC); Hypertension associated with diabetes (HCC); Gastroesophageal reflux disease, unspecified whether esophagitis present; Prostate cancer screening; BMI 38.0-38.9,adult; Severe obesity (BMI 35.0-39.9) with comorbidity (HCC) 01/25/2025 11:08 AM CDT - 01/25/2025 11:59 PM CDT Hospital Encounter [facility] [address] [place] [address] Jessica Shaw NP Other spondylosis, lumbar region (Primary Dx); Spinal stenosis of lumbar region with neurogenic claudication; Radiculopathy, lumbosacral region; Other intervertebral disc disorders, lumbar region Discharge Disposition: Discharge to home or self care 01/19/2025 Orders Only [facility] [address] [phone] Brayan Jones MD 01/09/2025 Orders Only [facility] Primary Care at [address] [phone] Brayan Jones MD from Last 3 Months [...] SURGERY 09/18/2015 Tonsillar cancer, Dr. Isaiah Rubalcava, [facility] COLONOSCOPY 02/18/2023 FLUORO GUIDED ASPIRATION TMJ LEFT 07/18/2024 Left LUMBAR SPINE SURGERY 07/18/2024 Minimally Invasive Lumbar Decompression ABDOMINAL SURGERY 1985 JOINT REPLACEMENT 09/28/23 Medical History Medical History Date Comments GERD (gastroesophageal reflux disease) Hyperlipidemia Hypertension Cancer (HCC) lt lymph node 20 16 had surgery Malignant neoplasm of neck (HCC) 09/25/2015 History of colon polyps 09/24/2017 Added au tomatically from request for surgery [id number] Borderline diabetes Spinal stenosis of lumbar re [...] on file Legal Sex Male 2:31 AM PIANO ASSEMBLER Gender Identity Not on file Sexual Orientation [...] HEPATITIS C ANTIBODY Routine 09/21/2018 10:30 AM PIANO ASSEMBLER Preventative health care HM ABDOMINAL AORTIC ANEURYSM SCREENING Routine 09/22/2013 from Last 3 Months or Most Recently Relevant to Health Maintenance Results * Diabetic Eye Exam (03/05/2025 11:50 AM CDT) 03/05/2025 11:5 0 AM CDT us Historical Provider HEALTH MAINTENANCE Final Result * Imaging Lumbar/Sacral Facet Medial Branch Block Bilateral ([id number]) (02/28/2025 11:49 AM CDT) Narrative RAD_PACS_CH - 02/28/2025 11:49 AM CDT The images from this study are not interpreted by Radiology. Please refer to the physician's procedure / OR operative note. us Jessica Sabino Shaw VEGETABLE PACKER IMG PAIN MGMT PROCEDURE S Final Result RAD_PACS_CH * Imaging Lumbar/Sacral Facet Medial Branch Block Bilateral ([id number]) (02/07/2025 12:06 PM CDT) Narrative RAD_PACS_[facility] - 02/07/2025 12:07 PM CDT The images from this study are not interpreted by Radiology. Please refer to the physician's procedure / OR operative note. us Jessica Spencerelizabeth Gregorybucky VEGETABLE PACKER IMG PAIN MGMT PROCEDURE S Final Result Performing Organization Address [facility] Co de Phone Number RAD_PACS_CH * [...] MD LAB BLOOD ORDERABLES Jennie l Result [facility] [address] Department [place] [address] * Differential, auto (02/06/2025 9:57 AM CDT) Neutrophil abs 3.52 1.50 - 6.50 K/cumm Imm gran abs 0.02 0.00 - 0.10 K/cumm [facility] Lymphocyte abs 1.88 0.80 - 3.30 K/cumm [facility] Monocyte abs 0.63 0.20 - 0.80 K/cumm [facility] Eosinophil abs 0.38 0.00 - 0.50 K/cumm [facility] Basophil abs 0.03 0.00 - 0.10 K/cumm [facility] Neutrophil pct 54.4 % [facility] Comment: Interpretive Data Percent cell count reference ranges are not reported, since discordance with absolute values may lead to misinterpretation of CBC data. Current Interpretive Data was last revised on 2017. Imm gran pct 0.3 % [facility] Comment: Interpretive Data Percent cell count reference ranges are not reported, since discordance with absolute values may lead to misinterpretation of CBC data. Current Interpretive Data was last revised on 2017. Lymphocyte pct 29.1 % [facility] Comment: Interpretive Data Percent cell count reference ranges are not reported, since discordance with absolute values may lead to misinterpretation of CBC data. Current Interpretive Data was last revised on 2017. Monocyte pct 9.8 % [facility] Comment: Interpretive Data Percent cell count reference ranges are not reported, since discordance with absolute values may lead to misinterpretation of CBC data. Current Interpretive Data was last revised on 2017. Eosinophil pct 5.9 % [facility] Comment: Interpretive Data Percent cell count reference ranges are not reported, since discordance with absolute values may lead to misinterpretation of CBC data. Current Interpretive Data was last revised on 2017. Basophil pct 0.5 % [facility] Comment: Interpretive Data Percent cell count reference ranges are not reported, since discordance with absolute values may lead to misinterpretation of CBC data. Current Interpretive Data was last revised on 2017. Blood 02/06/2025 9:57 AM CDT 02/06/2025 2:53 PM CDT Brayan Jones MD LAB BLOOD ORDERABLES Jennie l Result Performing Organization Address [facility] de Phone Number ENRRIQUE [address] [facility] [place] [address] * PSA screen (02/06/2025 9:57 AM CDT) Pathologist [facility] PSA-Total 3.79 <=6.20 ng/mL Comment: Interpretive Data [...] ORDERABLES Jennie l Result Performing Organization Address [facility] Co de Phone Number ENRRIQUE [address] [address] [facility] [place] [address] * CBC with auto differential (02/06/2025 9:57 AM CDT) WBC 6.46 3.80 - 9.90 K/cumm Hgb 14.1 13.0 - 17.5 g/dL [facility] Hct 43.0 38.9 - 50.3 % [facility] Plt 181 150 - 400 K/cumm [facility] MPV 10.3 9.1 - 12.3 fL [facility] RBC 4.76 4.30 - 5.80 M/cumm [facility] MCV 90.3 81.3 - 96.4 fL [facility] MCH 29.6 27.1 - 33.3 pg [facility] MCHC 32.8 32.3 - 35.7 g/dL [facility] RDW CV 12.3 11.1 - 14.9 % [facility] RDW SD 40.8 35.7 - 48.1 fL [facility] NRBC abs 0.00 0.00 - 0.01 K/cumm [facility] Blood 02/06/2025 9:57 AM CDT 02/06/2025 2:53 PM CDT Brayan Jones MD LAB BLOOD ORDERABLES Jennie l Result Performing Organization Address [facility] de Phone Number [facility] [address] [employer] [place], [place] [id number] * (ABNORMAL) Albumin Creatinine Ratio, Urine (02/06/2025 9:57 AM CDT) Albumin Ur 34.1 mg/L Comment: Interpretive Data No reference range established. Current interpretive data was last revised 2019. Creatinine Ur 113.1 mg/dL [facility] Comment: Interpretive Data No reference range established. Current interpretive data was last revised 2019. Albumin Creatinine Ratio, Ur 30(H) 1 - 29 mg/g [facility] Urine 02/06/2025 9:57 AM CDT 02/06/2025 2:55 PM CDT Brayan Jones MD LAB URINE ORDERABLES Jennie l Result Performing Organization Address [facility] Co de Phone Number [facility] [address] [address] [facility] [place] [address] * (ABNORMAL) Hemoglobin A1c (02/06/2025 9:57 AM CDT) Hgb A1C 7.2(H) 4.0 - 5.6 % Estimated Average Glucose 160 mg/dL [facility] Comment: The ADA recommends reporting an estimated Average Glucose (eAG) with all Hemoglobin A1c results using the equation derived from a study of 507 normal and diabetic adults. Minority populations were underrepresented and children were not included. (Diabetes Care 31:6068-3466, 2008). The eAG is not equivalent to a fasting glucose. Blood 02/06/2025 9:57 AM CDT 02/06/2025 2:53 PM CDT us Brayan Jones MD LAB BLOOD ORDERABLES Jennie goddard Result E[place] [address] Department [place] [address] * (ABNORMAL) Lipid panel (02/06/2025 [...] BLOOD ORDERABLES Jennie l Result [place] [address] [place] [address] * Comprehensive metabolic panel (02/06/2025 9:57 AM [...] BLOOD ORDERABLES Jennie l Result [place] [address] [address] Department [place] [address] * COLONOSCOPY (02/18/2023 7:38 AM CDT) Anatomical Region Laterality Modality Other Narrative Procedure Note John Gutierrez MD - 02/18/2023 7:38 AM CDT [facility] Patient Name: Ramo Mcarthur Procedure Date: 02/18/2023 7:38 AM Date of : 1945 Admit Type: Outpatient Age: 77 Gender: Male Attending MD: John Gutierrez M.D. Room: [facility] ENDOSCOPY ROOM 1 Note Status: Finalized Patient [...] scope was passed under direct vision. TheColonoscope [id number] was introduced through the anus and advanced [...] were complete. Verification of patient identification for thevir[facility] was done by the physician and nurse using the patient's name andbirth date. Estimated blood loss was minimal. Multiple small and large-mouthed diverticula were found in thesigmoid colon. The exam was otherwise without abnormality. Electronically signed by John Gutierrez M.D. John Gutierrez M.D. 02/18/2023 9:21:12 AM Number of Addenda: 0 Note Initiated On: 02/18/2023 7:38 AM Procedure Code(s): --- Professional --- 92491, Colonoscopy, flexible; with biopsy, single or multiple --- Technical --- 10844, Colonoscopy, flexible; with biopsy, single or multiple [...] history of colonic polyps CPT copyright 2020 [employer]. All rights reserved. The codes documented in this report are preliminary and upon caramel candy maker helper reviewmay be revised to meet current compliance requirements. Recognized by the [place] [employer] for promoting quality in endoscopy John Gutierrez MD ENDOSCOPY PROCEDURES Final Re sult * Hepatitis C antibody (09/21/2018 10:30 AM PIANO ASSEMBLER) Pathologist [facility] Hep C Ab Nonreactive Nonreactive [facility] Comment: Interpretive Data Positive results should be confirmed by a molecular method. If positive, a second separately collected sample should be submitted for Hepatitis C Virus (HCV) RNA Detection and Quantitation by Real-Time Reverse Gear Coding Machine Operator-PCR (RT-PCR). Current interpretive data was last revised on 2016. Blood specimen (specimen) 09/21/2018 10:30 AM PIANO ASSEMBLER 09/21/2018 1:41 PM PIANO ASSEMBLER Narrative [facility] - 09/22/2018 10:15 AM [facility] Bobby Mills MD LAB MICROBIOLOGY - GEN ERAL ORDERABLES Edited Result - Final [facility] [place] [address] * ABDOMINAL AORTIC ANEURYSM SCREENING (09/22/2013) Pathologist [facility] ABDOMINAL AORTIC ANEURYSM SCREENING Normal Historical Provider HEALTH MAINTENANCE Final Result from Last 3 Months or Most Recently Relevant to Health Maintenance Insurance [facility] MEDICARE RAILROAD [facility] MEDICARE [facility]ILROAD [facility] MEDICARE RAILROAD [employer] MEDICARE ADVANTAGE Advance Directives For more information, please contact: [phone] Documents on File Type Date Recorded Patient City Carrier Expl anation ADVANCE DIRECTIVE 09/19/2018 12:15 PM * Full Code (Latest Code Status on File) Date Activated Date Inactivated Comments 02/18/2023 7:50 AM 02/18/2023 2:15 PM * Full Code Date Activated Date Inactivated Comments 02/18/2023 7:50 AM 02/18/2023 7:50 AM * Full Code Date Activated Date Inactivated Comments 11/29/2017 7:17 AM 11/29/2017 11:00 AM Care Teams Conservation Biology Professor Relationship Specialty Start Date End Date Brayan Jones MD [address] [place] [address] PCP - General Family Medicine 03/18/22 Lasha Harris MD [address] [place] [address] Radiation Oncologist Radiation Oncology 06/09/18 Isaiah Rubalcava MD [address] [facility] DEPT OTOLARYNGOLOGY, [address] [address] Referring Physician Otolaryngology 06/09/18 John Gannon, OD [address] [facility] DEPT OTOLARYNGOLOGY, [address] [address] Special Delivery Messenger 09/21/18 Clemencia Dugan NP [address] [place] [address] Nurse Practitioner Nurse Practitioner 05/01/21
--- OUTSIDE RECORDS SUMMARY | 2025-04-11 22:57 | XMS_ITS ---
Author Organization [facility] Address [address] [place] [address] Care Team Providers Care Finisher Denture Name Role Phone Lasha Harris MD Unavailable Isaiah Rubalcava MD Unavailable John Gannon OD Unavailable [phone] Clemencia Dugan HEEL SHAPER Unavailable [phone] Brayan Jones MD Primary Care Provider [phone] Active Problems Problem Noted Date Diagnosed Date Spondylosis of lumbar region without myelopathy or radiculopathy 02/14/2025 BMI 38.0-38.9,adult 02/06/2025 Other intervertebral disc disorders, lumbar abdelrahman on 11/15/2024 Type 2 diabetes mellitus with hyperlipidemia 10/2023 Assessment & Plan (02/06/2025 9:56 AM CDT): COntinues on atorvastation. No new myalgas/arthalgias and will follow response. Assessment & Plan (08/01/2024 9:13 AM DIETITIAN ASSISTANT): STable on atorvastatin and will continue to follow repsonse. COntinue with no new myalgais./arthalgias. BMI 37.0-37.9, adult 08/01/2024 Assessment & Plan (08/01/2024 9:13 AM DIETITIAN ASSISTANT): ENcourage and seeing benefit from trulicity and wlll continue to follow response. Severe obesity (BMI 35.0-39.9) with comorbidity 08/01/2024 Assessment & Plan (08/01/2024 9:14 AM DIETITIAN ASSISTANT): As above. Medicare annual wellness visit, subsequent 08/01 Assessment & Plan (08/01/2024 9:15 AM DIETITIAN ASSISTANT): Focus of exam is preventative in nature. Reivewed immunizations, reviewed sun/skin cancer screening. Reviewed colon/prostate cancer screening. COntinue to follow with lifesytle and diet modification to continue blood sugar regimen. Spinal stenosis of lumbar re gion with neurogenic claudication 05/29/2024 Assessment & Plan (08/01/2024 9:13 AM DIETITIAN ASSISTANT): COntinue f/u with pain management. Seeing improvement s/p MILD and seeing in f/u tomorrow. Radiculopathy, lumbosacral region 05/29/2024 Hypertension associated with diabetes 01/18/2024 Assessment & Plan (02/06/2025 9:55 AM CDT): Stabl harvinder lsiinopril and will montior esponse. NO chest pains/pressures/palpitations. Assessment & Plan (08/01/2024 9:12 AM DIETITIAN ASSISTANT): Stable on lisinopril. WIll follow repsonse. Reivewed [...] esponse. Assessment & Plan (08/01/2024 9:12 AM DIETITIAN ASSISTANT): Markedly improved blood sugars. COntinue on CGM [...] neck dissection, levels 2, 3, and 4 ([place] 09/23/2015) Direct laryngoscopy ([place] 09/23/2015) 2. 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 No clincial s/s of recurrence. Assessment & Plan (08/01/2024 9:11 AM DIETITIAN ASSISTANT): No clinical evidence of recurrence. Asymmetrical sensorineural hearing loss 10/16/19 16 Benign colonic polyp 08/22/2011 Gastroesophageal reflux disease 08/22/2011 Assessment & Plan (02/06/2025 9:54 AM CDT): Stable on nexium bid and iwll follow response. NO change at the presne timte. Will continue on PPI. Assessment & Plan (08/01/2024 9:12 AM DIETITIAN ASSISTANT): Stable on nexium. NO dysphagia. No blood [...] (09/24/2017): Added automatically from request for surgery [id number] Controlled type 2 diabetes m corazon with [...]
--- OUTSIDE RECORDS SUMMARY | 2025-04-11 22:57 | XMS_ITS | Encounter Summary ---
Author Organization [facility] Address [address] [place] [address] Phone Care Team Providers Care Head Machinist Name Role Phone Bobby Mills MD Primary Care Provider Lasha Harris MD Unavailable [phone] Isaiah Rubalcava MD Unavailable [phone] John Gannon OD Unavailable [phone] Dilcia Snyder MD Primary Care Provider [phone] Clemencia Dugan IMPREGNATING TANK OPERATOR Unavailable Dilcia Snyder MD Primary Care Provider [phone] Brayan Jones MD Primary Care Provider [phone] Encounter Details Date Type Department Care Team (Late st Contact Info) Description 10/08/2017 Orders Only [facility] ProviderCarla MD [address] [place] [id number] Social History Tobacco Use Types Packs/Day Years Used Date Smoking Tobacco: Former Cigarettes Q uit: 08/30/1975 Alcohol Use Standard Drinks/Week Comments Yes 0 (1 standard drink = 0.6 oz pur e alcohol) Sex and Gender Information Value Date Recorded Sex Assigned at Not on file Legal Sex Male 2:31 AM HAND SCUDDER Gender Identity Not on file Sexual Orientation [...] on filedocumented in this encounter Care Teams Head Machinist Relationship Specialty Start Date End Date Bobby Mills MD PCP - General 10/30/16 12/18/19 Dilcia Snyder MD [address] [place], [place] [address]DAVID Diane [facility] [address] [place] [address] PCP - General Internal Medicine 12/19/19 03/02/22 Dilcia Snyder MD [address] [place], [place] [address]DAVID Diane [facility] [address] [place] [address] PCP - General 03/03/22 03/17/22 Brayan Jones MD [address] [place] [address] PCP - General Family Medicine 03/18/22 Lasha Harris MD [address] [facility] [address] [place] [address] Radiation Oncologist Radiation Oncology 06/09/18 Isaiah Rubalcava MD [address] [facility] DEPT OTOLARYNGOLOGY, [facility] [address] [place] [address] Referring Physician Otolaryngology 06/09/18 John Gannon, OD [address] [facility] OTOL[facility]OLOG[facility], JUNIOR [address] [place] [address] Attorney 09/21/18 Clemencia Dugan NP [address] [facility] [address] [place] [address] Nurse Practitioner Nurse Practitioner 05/01/21 documented as of this encounter
--- NOTE | 2025-04-11 22:59 | ED_ITS ---
HPI - Male Genitourinary General Chief complaint: Urogenital-Male Stated complaint: uti Time Seen by Provider: 04/11/25 22:14 Source: patient Mode of arrival: ambulatory Limitations: no limitations History of Present Illness HPI Narrative: Patient is a 80-year-old male who presents the ED with report of urinary frequency. Patient reports having urinary frequency today. States he was urinating around every 5 minutes or so, with small avoid urines. He with concern for urinary tract infection. He does report history of 2 urinary tract infections last year and states he became very sick with both of these. His encouraged him to come to the ED. Patient reports he is feeling improved currently. Denies any further urinary complaints. Denies dysuria, hematuria, abdominal pain, back/flank pain, nausea, vomiting, fevers. Related Data Home Medications ?Medication ?Instructions ?Recorded ?Confirmed ?Last Taken ?Type atorvastatin 80 mg tablet 80 mg PO HS 06/06/21 10/09/24 09/27/23 19:00 History esomeprazole magnesium 40 mg 40 mg PO DAILY 06/06/21 10/09/24 09/27/23 09:00 History capsule,delayed release lisinopril 10 mg tablet 10 mg PO HS 06/06/21 10/09/24 09/27/23 19:00 History tamsulosin 0.4 mg capsule 0.4 mg PO HS 06/06/21 10/09/24 09/27/23 19:00 History aspirin 81 mg tablet,delayed 162 mg PO DAILY 09/03/23 10/09/24 09/20/23 History release cyclobenzaprine 10 mg tablet 10 mg PO HS PRN Muscle Spasm 09/03/23 10/09/24 Unknown History glipizide 5 mg tablet 5 mg PO QAM 09/03/23 10/09/24 09/27/23 08:00 History ibuprofen 200 mg tablet 600 mg PO BID PRN Pain 09/03/23 10/09/24 09/20/23 History Allergies Allergy/AdvReac Type Severity Reaction Status Date / Time mushroom Allergy Severe Anaphylaxis Verified 04/11/25 20:31 olive extract Allergy Unknown Swelling Verified 04/11/25 20:31 Penicillins Allergy Unknown Swelling Verified 04/11/25 20:31 Review of Systems Review of Systems: All systems reviewed & are unremarkable except as noted in HPI. All systems reviewed & are unremarkable except as noted in HPI and below PMFSH Past Medical History Medical History Kidney stone Benign prostatic hyperplasia Degenerative joint disease of left shoulder Type 2 diabetes mellitus Hyperlipidemia Hypertension Gastroesophageal reflux disease Surgical History Surgical History History of reverse total replacement of left shoulder joint (~09/28/23) History of skin graft History of arthroscopy of left knee History of cholecystectomy History of tonsillectomy History of appendectomy Family History Family History Sibling Diabetes mellitus Family history of malignant neoplasm Mother Family history of malignant neoplasm Social History Social History Social History: Surrogate medical decision maker: Patricia Mcarthur, spouse. Code status: Full code. Smoking packs per day: 3 Smoking cigarettes per day: 60.0 Years smoked: 18 Smoking pack-years: 54.00 Smoking status: Former smoker Tobacco type: cigarettes Smoking end date: 02/27/75 Alcohol intake: current Drinks per week: 1 Substance use: never Substance use type: does not use Do You Feel Safe in your Home?: Yes Lack of Transportation: No Lack of Food: Never True Current Housing: I Have Housing Concerned About Future Housing: No Difficulty Paying Gas/Electric Bills: No Difficulty Paying for Meds: No Currently Unemployed: No Education: Bachelor's Degree Difficulty w/ Childcare or Family Care: No Living arrangements: with family Additional living arrangements comments: Lives with spouse in [place]. 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 Spiritual care concerns: No Exam Narrative: GENERAL: Well appearing, obese with BMI of 38.1, non-toxic, in no acute di stress. HEAD: Normocephalic, atraumatic. RESPIRATORY: Airway patent, respirations nonlabored. Clear to auscultation bilaterally, no rales, rhonchi, wheezing. CARDIOVASCULAR: Regular rate and rhythm ABDOMINAL: Soft, nontender, nondistended. Normoactive BS. MUSCULOSKELETAL: Moves all extremities. No gross deformities. SKIN: Warm, dry, normal color. NEURO: A&O X3. Speech clear. PSYCHIATRIC: Appropriate mood and affect. Normal interaction. Course Vital Signs Vital signs: Vital Signs Temperature 98.9 F 04/11/25 20:31 Pulse Rate 94 04/11/25 20:31 Respiratory Rate 17 04/11/25 20:31 Blood Pressure 185/77 H 04/11/25 20:31 Pulse Oximetry 97 04/11/25 20:31 Oxygen Delivery Room Air 04/11/25 20:31 Temperature 98.9 F 04/11/25 23:06 Pulse Rate 94 04/11/25 23:06 Respiratory Rate 17 04/11/25 23:06 Blood Pressure 185/77 H 04/11/25 23:06 Pulse Oximetry 97 04/11/25 23:06 Oxygen Delivery Room Air 04/11/25 20:31 MDM - Male Genitourinary MDM Narrative Medical decision making narrative: Patient presented to ED with urinary frequency that began today. Concerned for UTI. Does have history of similar. Vital signs stable upon arrival. Patient in no acute distress. Upon my evaluation, patient reports urinary symptoms have completely resolved. He is denying any further concerns or complaints. States he is ready to go home. UA here is completely clear. No signs of infection. I discussed this with patient. Discussed performing blood work, however patient politely declined. States he is ready to go at this time. Feels reassured by negative UA. No systemic signs of infection. No abdominal pain, flank pain, fevers. States he will follow-up with his primary care doctor. Encouraged close follow-up, given return precautions. Patient discharged in stable condition. Medical Records Attestation: I reviewed the patient's medical records. Lab Data Attestation: I reviewed the patient's lab results. Labs: Lab Results 04/11/25 Range/Units 20:50 Urine Color Yellow (Yellow) Urine Appearance Clear (Clear) Urine pH 6.0 (5.0-9.0) Ur Specific [place] 1.005 (1.001-1.035) Urine Protein Negative (Negative) mg/dL Urine Glucose (UA) Negative (Negative) mg/dL Urine Ketones Negative (Negative) mg/dL Ur Blood (Man) Trace (Negative) Urine Nitrate Negative (Negative) Urine Bilirubin Negative (Negative) Urine Urobilinogen 0.2 (<2.0) mg/dL Leukocyte Esterase Rfl Negative (Negative) HEIDY/UL Urine RBC 0-2 (0-2) /hpf Urine WBC 0-5 (0-3) /hpf Ur Squamous Epith Cells None seen (Few) /hpf Urine Bacteria None seen /hpf Urine Casts 0-2 Discharge Plan Discharge Clinical Impression: Urinary frequency Patient Disposition: Home Condition: Stable Instructions: Antibiotic Form, Urinary Tract Infection in Men (ED) Additional Instructions: Your urine did not show any signs of infection. Follow-up with your primary care doctor for further evaluation. Return to ED for new or worsening concerns. Patient Language: Togolese Prescriptions: No Action atorvastatin 80 mg tablet 80 mg PO HS tamsulosin 0.4 mg capsule 0.4 mg PO HS esomeprazole magnesium 40 mg capsule,delayed release(DR/EC) 40 mg PO DAILY lisinopril 10 mg tablet 10 mg PO HS glipizide 5 mg tablet 5 mg PO QAM ibuprofen 200 mg tablet 600 mg PO BID PRN (Reason: Pain) Trulicity 0.75 mg/0.5 mL pen injector 0.75 mg subcut WEEKLY Qty: 2 0RF Rx Instructions: take 0.75 mg weekly for 4 weeks, then increase dose to 1.5 mg Trulicity 1.5 mg/0.5 mL pen injector 1.5 mg subcut WEEKLY Qty: 2 0RF Rx Instructions: start taking 1.5 mg weekly dose once you are done with weekly 0.75 mg x 4 doses levofloxacin 750 mg tablet 750 mg PO DAILY Qty: 6 0RF aspirin 81 mg Tablet,Delayed Release (Dr/Ec) 162 mg PO DAILY cyclobenzaprine 10 mg tablet 10 mg PO HS PRN (Reason: Muscle Spasm) Follow-up/Referrals: Harms,Brayan Miranda M.D. [Primary Care Provider] - Time of Disposition: 23:01
[2025-04-11 23:06] VITALS: BP 185/77; PULSE 94; RESP 17; TEMP 37.2; O2SAT 97
== END 2025-04-11 23:08 | disposition home or self-care (01) ==
PROVIDERS: Student in an Organized Health Care Education/Training Program; Emergency Provider Physician Assistant; PCP Family Medicine
DX: R35.0 Frequency of micturition (principal); E11.9 Type 2 diabetes mellitus without complications; E78.5 Hyperlipidemia, unspecified; I10 Essential (primary) hypertension; K21.9 Gastro-esophageal reflux disease without esophagitis; Z87.891 Personal history of nicotine dependence
CPT/HCPCS: 81001; 99283